=== PATIENT | male | born 1955 ===

== ENCOUNTER 2022-10-24 03:52 | Emergency (ER) | payer BC, OTHER ==
--- OUTSIDE RECORDS SUMMARY | 2022-10-24 04:01 | XMS REPORT | Continuity of Care Document ---
:1955 Author Organization [facility] t Address [address] [place] [address] Care Team Providers Name Role Phone Ravi Chisholm Primary Care Physician Doris PROMOTION MANAGERPinky Luis Attending Clinician Only, Ang Db Test Attending Clinician Unavailable Kristina Wisdom Attending Clinician KRISTINA COX Attending Clinician Unavailable Ricardo Castillo Attending Clinician Unavailable Only, Adc Test Attending Clinician Unavailable Isaak Bray MD Attending Clinician Ella Shelley MD Attending Clinician ELLA SHELLEY Attending Clinician Unavailable Capri Paulino RN Attending Clinician Unavailable Uche Frey MD Attending Clinician UCHE FREY Attending Clinician Unavailable Doctor Unassigned, [place] Attending Clinician Unavailable Isaak Candelaria Attending Clinician Ricardo Castillo Attending Clinician Woodrow Ward Attending Clinician Kev Guzman Attending Clinician Ricardo Castillo Admitting Clinician Unavailable Amrit Perez Admitting Clinician Ricardo Castillo Admitting Clinician Payers Payer Name Policy Type Policy Number Effective Date Expiration Date Brent soto MEDICARE PART A [id number] 2021 \\T\\ B 00:00:00 [employer] CHOICE POS [id number] 2017 II 00:00:00 Problems Condition Condition Condition Status Onset Resolution Last Treating Co mments Source Name Details Category Date Date Treatment Clinician Date Heart Heart Disease Active [facility] attack attack 07-19 ity of 00:00: [address] CHEST PAIN CHEST Diagnosis Active 2019-05-18 Memoria PAIN 05-18 13:50:00 l Active 00:00: [place] 05/18/2019 00 [facility] [place] ACUTE ACUTE Diagnosis Active 2019-05-21 Mem oria CHEST PAIN CHEST PAIN 05-18 08:31:00 l Active 00:00: [place] 05/18/2019 00 [facility] PERSISTENT PERSISTEN Diagnosis Active 2017-06-28 Memoria CHEST PAIN T CHEST 06-24 08:35:00 l PAIN 00:00: P[place] Active 00 06/24/2017 [facility] F/U F/U Diagnosis Active 2017-06-22 Mem oria Active 06-15 08:29:00 l 06/15/2017 00:00: Mic carr [address] CAD CAD Diagnosis Active 2016-11-10 Mem oria Active 06-18 15:24:00 l 06/18/2016 00:00: Mic carr [address] CCL/LHC, CCL/LHC, Diagnosis Active 2016-06-18 Memoria SCA W/ SCA W/ 06-18 16:37:00 l POSS POSS 00:00: [place] PCI/DX: PCI/DX: 00 CAD CAD Active 06/18/2016 [facility] FOLLOW UP FOLLOW UP Diagnosis Active 2016-06-18 Memoria Active 06-17 14:08:00 l 06/17/2016 00:00: Mic carr [address] T79.A12D - [id number].[id number] Diagnosis Active 2016-05-24 Memoria TRAUMATIC - 05-13 15:39:00 l COMPARTMEN TRAUMATIC 00:01: Her angel T SYNDROM COMPARTMEN 00 T SYNDROM Active 05/13/2016 CHARITY Dumas NUMBNESS NUMBNESS Diagnosis Active 2013-112014-09-17 Memoria TO TO 0-28 14:29:00 l SHOULDER SHOULDER 00:00: Mic carr Active 00 09/10/2014 [facility] CORONARY CORONARY Diagnosis Active 2014-05-06 Memoria ARTERY ARTERY 05-02 07:55:00 l DISEASE DISEASE 00:00: Piter Active 00 05/02/2014 [facility] 3 MT F/U 3 MT F/U Diagnosis Active 2014-05-01 Memoria Active 01-21 16:26:00 l 01/21/2014 00:00: Mic carr [address] 6 MONTHS 6 MONTHS Diagnosis Active 2012-112014-02-18 Memoria FOLLOW-UP FOLLOW-UP 0- 15:27:00 l Active 00:00: [place] 09/06/2013 00 [facility] CHEST CHEST Diagnosis Active 2013-04-25 Me moria PAINOK PAINOK 04-24 08:09:00 l TO ADD PER TO ADD PER 00:00: Rishi RAMIREZ 00 [id number] Active 04/24/2013 [facility] Hypertensi Problem Resolve 2019-05-21 Memoria ve Hypertensi d 21:56:22 l disorder, ve Piter systemic disorder, arterial systemic (disorder) arterial (disorder) Resolved Problem 05/21/2019 [facility] CHARITY Dumas,[facility] Coronary Coronary Problem Active 2019-05-21 Memoria arterioscl arterioscl 21:56:22 l erosis erosis Piter (disorder) (disorder) Active Problem 05/21/2019 [facility], CHARITY Dumas,[facility] Hyperlipid Hyperlipi Problem Active 2019-05-21 Memoria emia demia 21:56:22 l (disorder) (disorder) Rishi santos Active Problem 05/21/2019 [facility] CHARITY Dumas,[facility] History of History Problem Active 2019-05-21 Memoria placement of 21:56:22 l of stent placement Gilda nn for of stent coronary for artery coronary disease artery (situation disease ) (situation ) Active Problem 05/21/2019 [facility] CHEST CHEST Diagnosis Active 2019-05-21 Mem oria PAIN, PAIN, 08:31:00 l UNSPECIFIE UNSPECIFIE He tom D D Active [facility] SKIN SKIN Diagnosis Active 2014-09-17 Mem oria SENSATION SENSATION 14:29:00 l DISTURB DISTURB Piter Active [facility] COR ATH COR ATH Diagnosis Active 2014-05-06 Memoria UNSP VSL UNSP VSL 07:55:00 l NTV/GRF NTV/GRF Piter Active [facility] Allergies, Adverse Reactions, Alerts Allergy Allergy Status Severity Reaction(s) Onset Inactive Treating Comm ents Source Name Type Date Date Clinician NO KNOWN Drug Active [facility] ALLERGIE Class ity of S [facility] Social History Social Habit Start Date Stop Date Quantity Comments Source Exposure to Yes [facility] SARS-CoV-2 (event) Medica l Branch Social History 2019-05-19 2019-05-19 [facility] [place] adriane 03:04:25 03:04:25 [birth year] [facility] 00:00:00 00:00:00 [facility] Smoking Status Start Date Stop Date Source Unknown if ever smoked [facility] Social [facility] Medications Ordered Filled Start Stop Current Ordering Indication Dosage Frequency Signature Comments Components Source Medication Medication Date Date Medication? Clinician (SIG) Name Name clopidogreL Yes 75mg Take 75 mg Univers 75 mg 906 by mouth ity of tablet 00:30: daily. [address] aspirin 2020- Yes Take by Univers (ASPIR-81 9-06 mouth. ity of ORAL) 00:30: [address] clopidogreL Yes 75mg Take 75 mg Univers 75 mg 906 by mouth ity of tablet 00:30: daily. [address] aspirin 2020- Yes Take by Univers (ASPIR-81 9-06 mouth. ity of ORAL) 00:30: [address] metoprolol 2020- Yes Univers succinate 05 ity of XL 25 mg 24 00:00: [place] hr tablet 00 Medical [place] simvastatin Yes Univer s 80 mg 9-05 ity of tablet 00:00: [facility] Branch tamsulosin Yes Univers 0.4 mg 24 -05 ity of hr capsule 00:00: [facility] azithromyci Yes [id number] 250mg Take 1 Univers n 250 mg 9-05 tablet by ity of tablet 00:00: mouth daily. Medical Take 500 Branch mg day 1, then 250 mg days 2 to 5. metoprolol Yes Univers succinate 9-05 ity of XL 25 mg 24 00:00: [place] hr tablet 00 [facility] simvastatin Yes Univer s 80 mg 9-05 ity of tablet 00:00: [place] [facility] tamsulosin Yes Univers 0.4 mg 24 -05 ity of hr capsule 00:00: [place] [facility] azithromyci Yes [id number] 250mg Take 1 Univers n 250 mg 9-05 tablet by ity of tablet 00:00: mouth daily. Medical Take 500 Branch mg day 1, then 250 mg days 2 to 5. metoprolol 0 No 25 mg, 1 Mem oria extended 05-19 tab, l release 14:00: Route: PO, Herm nikos 00 Drug form: ERTAB, Daily, Start date: 05/19/19 9:00:00 CDT, Duration: 30 day, Stop date: 06/17/19 9:00:00 CDT, 0 Lisinopril 2018-0 No Notes: Memor ia 05-19 (Same as: l 14:00: Prinivil, Piter 00 Zestril) Plavix 2018-0 No Notes: Memoria 05-19 (Same As: l 14:00: Plavix) Aspirin 81 2018-0 No 162 mg, 2 Me moria MG Enteric 05-19 tab, l Coated 14:00: Route: PO, Gilda nn Tablet 00 Drug form: ECTAB, Daily, Dosing Weight 95.455, kg, Start date: 05/19/19 9:00:00 CDT, Duration: 30 day, Stop date: 06/17/19 9:00:00 CDT, 0 metoprolol 2019-0 No 25 mg, 1 Mem oria extended -06 tab, l release 14:00: Route: PO, Herm nikos 00 Drug form: ERTAB, Daily, Start date: 05/19/19 9:00:00 CDT, Duration: 30 day, Stop date: 06/17/19 9:00:00 CDT, 0 Lisinopril No Notes: Memor ia 05-19 (Same as: l 14:00: Prinivil, [place] Zestril) Plavix No Notes: Memoria - (Same As: l 14:00: Plavix) Piter 00 Aspirin 81 No 162 mg, 2 Me moria MG Enteric 05-19 tab, l Coated 14:00: Route: PO, Gilda nn Tablet 00 Drug form: ECTAB, Daily, Dosing Weight 95.455, kg, Start date: 05/19/19 9:00:00 CDT, Duration: 30 day, Stop date: 06/17/19 9:00:00 CDT, 0 Potassium No Notes: Memori a Chloride 05-19 (Same as: l 09:21: K-Dur 20) "Do Not Crush" Give with food and full glass of water For patients unable to swallow tablet, dissolve in one half glass of water. Allow about 2 minutes for the tablets to disintegra te. Stir before giving to prepare slurry and administer . Please exclude Patient s with feeding tube less than 14 [place] (Dobhoff, J-tube etc) and pediatric and patients. Potassium No Notes: Memori a Chloride 05-19 (Same as: l 09:21: K-Dur 20) Piter 00 "Do Not Crush" Give with food and full glass of water For patients unable to swallow tablet, dissolve in one half glass of water. Allow about 2 minutes for the tablets to disintegra te. Stir before giving to prepare slurry and administer . Please exclude Patient s with feeding tube less than 14 [place] (Dobhoff, J-tube etc) and pediatric and patients. Saline No 10 ml, Memoria Flush 0.9% 05-19 Route: l 02:00: IVP, Drug Form: INJ, Dosing Weight 95.455, kg, Q12H, Start date: 05/18/19 21:00:00 CDT, Duration: 30 day, Stop date: 06/17/19 9:00:00 CDT, 0 Simvastatin 2018-0 No Notes: [place] ed 7-06 (Same as: l 02:00: Zocor) Saline No 10 ml, Memoria Flush 0.9% 05-19 Route: l 02:00: IVP, Drug Form: INJ, Dosing Weight 95.455, kg, Q12H, Start date: 05/18/19 21:00:00 CDT, Duration: 30 day, Stop date: 06/17/19 9:00:00 CDT, 0 Simvastatin 0 No Notes: [place] ed 7-06 (Same as: l 02:00: Zocor) Enoxaparin No Notes: Memor ia 7-05 (Same as: l 21:00: Lovenox) Enoxaparin No Notes: Memor ia 7-05 (Same as: l 21:00: Lovenox) Saline No 10 ml, Memoria Flush 0.9% 05-18 Route: l 20:13: IVP, Drug Form: INJ, Dosing Weight 95.455, kg, PRN, PRN Line Flush, Start date: 05/18/19 15:13:00 CDT, Duration: 30 day, Stop date: 06/17/19 15:12:00 CDT, 0 Adenosine No 80.1822 Memor ia 7-05 mg, Route: l 20:13: IVP, ONCE, Dosing Weight 95.455, kg, Priority: Routine, Start date: 05/18/19 15:13:00 CDT, Stop date: 05/18/19 15:13:00 CDT Nitroglycer No 0.4 mg, 1 M emoria in 05-18 tab, l 20:13: Route: SL, Drug form: TAB, Q5Min, Dosing Weight 95.455, kg, PRN Chest Pain, Start date: 05/18/19 15:13:00 CDT, Duration: 3 doses or times, Stop date: Limited # of times, 0 Saline No 10 ml, Memoria Flush 0.9% 05-18 Route: l 20:13: IVP, Drug Form: INJ, Dosing Weight 95.455, kg, PRN, PRN Line Flush, Start date: 05/18/19 15:13:00 CDT, Duration: 30 day, Stop date: 06/17/19 15:12:00 CDT, 0 Adenosine 2019-0 No 80.1822 Memor ia 7-05 mg, Route: l 20:13: IVP, ONCE, Dosing Weight 95.455, kg, Priority: Routine, Start date: 05/18/19 15:13:00 CDT, Stop date: 05/18/19 15:13:00 CDT Nitroglycer No 0.4 mg, 1 M emoria in 05 tab, l 20:13: Route: SL, Drug form: TAB, Q5Min, Dosing Weight 95.455, kg, PRN Chest Pain, Start date: 05/18/19 15:13:00 CDT, Duration: 3 doses or times, Stop date: Limited # of times, 0 Nitroglycer Yes 0.4 mg = 1 Memoria in 0.4 MG 8-05 tab, SL, l Sublingual 21:02: Q5Min, PRN H ermann Tablet 45 Chest [Nitrostat] Pain, # 25 tab, 6 Refill(s), Pharmacy: [facility] Nitroglycer Yes 0.4 mg = 1 Memoria in 0.4 MG 8-05 tab, SL, l Sublingual 21:02: Q5Min, PRN H ermann Tablet 45 Chest [Nitrostat] Pain, # 25 tab, 6 Refill(s), Pharmacy: [facility] 24 HR Yes 30 mg = 1 Memoria Isosorbide 8-05 tab, PO, l Mononitrate 21:02: QAM, # 30 H ermann 30 MG 00 tab, 0 Extended Refill(s), Release Pharmacy: [facility] 24 HR Yes 30 mg = 1 Memoria Isosorbide 8-05 tab, PO, l Mononitrate 21:02: QAM, # 30 H ermann 30 MG 00 tab, 0 Extended Refill(s), Release Pharmacy: [facility] [id number] clopidogrel 2016-0 Yes 75 mg = 1 M emoria 75 MG Oral 5-17 tab, PO, l Tablet 16:37: Daily, # [place] [Plavix] 54 90 tab, 3 Refill(s), Pharmacy: [facility] ([facility] Order) Electronic clopidogrel 2016-0 Yes 75 mg = 1 M emoria 75 MG Oral 5-17 tab, PO, l Tablet 16:37: Daily, # [place] [Plavix] 54 90 tab, 3 Refill(s), Pharmacy: [facility] ([facility] Order) Electronic lisinopril 2016-0 Yes 5 mg = 1 Mem oria 5 mg oral 5-17 tab, PO, l tablet 16:37: Daily, # [place] 46 90 tab, 3 Refill(s), Pharmacy: [facility] ([facility] Order) Electronic lisinopril 2016-0 Yes 5 mg = 1 Mem oria 5 mg oral 5-17 tab, PO, l tablet 16:37: Daily, # [place] 46 90 tab, 3 Refill(s), Pharmacy: [facility] ([facility] Order) Electronic metoprolol 2016-0 Yes 25 mg, PO, M emoria 25 mg oral 5-17 Daily, # l tablet, 16:37: 90 tab, 3 Gilda nn extended 34 Refill(s), release Pharmacy: [facility] (Mail Order) Electronic metoprolol 2016-0 Yes 25 mg, PO, M emoria 25 mg oral 5-17 Daily, # l tablet, 16:37: 90 tab, 3 Gilda nn extended 34 Refill(s), release Pharmacy: [facility] (Mail Order) Electronic simvastatin 2016-0 Yes 80 mg = 1 M emoria 80 mg oral 5-17 tab, PO, l tablet 16:37: Bedtime, # Gilda nn 25 90 tab, 3 Refill(s), Pharmacy: [facility] (Mail Order) Electronic simvastatin 2016-0 Yes 80 mg = 1 M emoria 80 mg oral 5-17 tab, PO, l tablet 16:37: Bedtime, # Gilda nn 25 90 tab, 3 Refill(s), Pharmacy: [facility] (Mail Order) Electronic Nitroglycer 2016-0 Yes 0.4 mg = 1 Memoria in 0.4 MG 5-17 tab, SL, l Sublingual 16:37: Q5Min, PRN H ermann Tablet 12 Chest [Nitrostat] Pain, # 25 tab, 6 Refill(s), Pharmacy: [facility] Nitroglycer Yes 0.4 mg = 1 Memoria in 0.4 MG 5-17 tab, SL, l Sublingual 16:37: Q5Min, PRN H ermann Tablet 12 Chest [Nitrostat] Pain, # 25 tab, 6 Refill(s), Pharmacy: [facility] Zyrtec 2014-11 Yes PO, Daily, Memor ia 0-06 0 l 19:53: Refill(s) [place] Zyrtec 2014-11 Yes PO, Daily, Memor ia 0-06 0 l 19:53: Refill(s) [place] 00 Nitroglycer 2014-11 Yes 0.4 mg = 1 Memoria in 0.4 MG 0-06 tab, SL, l Sublingual 19:52: Q5Min, PRN H ermann Tablet 58 Chest [Nitrostat] Pain, # 25 tab, 3 Refill(s), Pharmacy: [facility] (Mail Order) Electronic Nitroglycer 2014-11 Yes 0.4 mg = 1 Memoria in 0.4 MG 0-06 tab, SL, l Sublingual 19:52: Q5Min, PRN H ermann Tablet 58 Chest [Nitrostat] Pain, # 25 tab, 3 Refill(s), Pharmacy: [facility] ([facility] Order) Electronic clopidogrel 2014-11 Yes 75 mg = 1 M emoria 75 MG Oral 0-06 tab, PO, l Tablet 19:52: Daily, # [place] [Plavix] 00 90 tab, 3 Refill(s), Pharmacy: [facility] ([facility] Order) Electronic simvastatin 2014-11 Yes 80 mg = 1 M emoria 80 mg oral 0-06 tab, PO, l tablet 19:52: Bedtime, # Gilda nn 00 90 tab, 3 Refill(s), Pharmacy: [facility]) Electronic metoprolol 2014-11 Yes 25 mg, PO, M emoria 25 mg oral 0-06 Daily, # l tablet, 19:52: 90 tab, 3 Gilda nn extended 00 Refill(s), release Pharmacy: [facility]) Electronic lisinopril 2014-11 Yes 5 mg = 1 Mem oria 5 mg oral 0-06 tab, PO, l tablet 19:52: Daily, # [place] 00 90 tab, 3 Refill(s), Pharmacy: [facility] ([facility] Order) Electronic clopidogrel 2014-11 Yes 75 mg = 1 M emoria 75 MG Oral 0-06 tab, PO, l Tablet 19:52: Daily, # [place] [Plavix] 00 90 tab, 3 Refill(s), Pharmacy: [facility]) Electronic simvastatin 2014-11 Yes 80 mg = 1 M emoria 80 mg oral 0-06 tab, PO, l tablet 19:52: Bedtime, # Gilda nn 00 90 tab, 3 Refill(s), Pharmacy: [facility] ([facility]) Electronic metoprolol 2014-11 Yes 25 mg, PO, M emoria 25 mg oral 0-06 Daily, # l tablet, 19:52: 90 tab, 3 Gilda nn extended 00 Refill(s), release Pharmacy: [facility] ([facility] Order) Electronic lisinopril 2014-11 Yes 5 mg = 1 Mem oria 5 mg oral 0-06 tab, PO, l tablet 19:52: Daily, # Piter 00 90 tab, 3 Refill(s), Pharmacy: [facility] ([facility] Order) Electronic simvastatin Yes 80 mg = 1 M emoria 80 mg oral 9-24 tab, PO, l tablet 13:48: Bedtime, # Gilda nn 00 90 tab, 1 Refill(s), Pharmacy: [facility] (Mail Order) Electronic simvastatin Yes 80 mg = 1 M emoria 80 mg oral 9-24 tab, PO, l tablet 13:48: Bedtime, # Gilda nn 00 90 tab, 1 Refill(s), Pharmacy: [facility] ([facility]) Electronic metoprolol Yes 25 mg = 1 Me moria 25 mg oral 9-23 tab, PO, l tablet, 13:44: Daily, # Mic n extended 14 90 tab, 1 release Refill(s), Pharmacy: [facility] ([facility]) Electronic metoprolol Yes 25 mg = 1 Me moria 25 mg oral 9-23 tab, PO, l tablet, 13:44: Daily, # Mic n extended 14 90 tab, 1 release Refill(s), Pharmacy: [facility] ([facility]) Electronic Nitroglycer Yes 0.4 mg = 1 Memoria in 0.4 MG 9-23 tab, SL, l Sublingual 13:44: Q5Min, PRN H ermann Tablet 00 Chest [Nitrostat] Pain, # 25 tab, 0 Refill(s), Pharmacy: [facility] ([facility]) Electronic Nitroglycer Yes 0.4 mg = 1 Memoria in 0.4 MG 9-23 tab, SL, l Sublingual 13:44: Q5Min, PRN H ermann Tablet 00 Chest [Nitrostat] Pain, # 25 tab, 0 Refill(s), Pharmacy: [facility]) Electronic lisinopril Yes 5 mg = 1 Mem oria 5 mg oral 9-23 tab, PO, l tablet 13:43: Daily, # Piter 54 90 tab, 1 Refill(s), Pharmacy: [facility]) Electronic lisinopril Yes 5 mg = 1 Mem oria 5 mg oral 9-23 tab, PO, l tablet 13:43: Daily, # [place] 54 90 tab, 1 Refill(s), Pharmacy: [facility] ([facility]) Electronic clopidogrel Yes 75 mg = 1 M emoria 75 MG Oral 9-23 tab, PO, l Tablet 13:43: Daily, # [place] [Plavix] 31 90 tab, 1 Refill(s), Pharmacy: [facility] ([facility]) Electronic clopidogrel Yes 75 mg = 1 M emoria 75 MG Oral 9-23 tab, PO, l Tablet 13:43: Daily, # [place] [Plavix] 31 90 tab, 1 Refill(s), Pharmacy: [facility] ([facility] Order) Electronic lisinopril Yes Special [place] ed 5 mg oral 6-26 Instructio l tablet 13:48: ns: Piter 00 patient is due for follow up appt metoprolol Yes Special [place] ed 25 mg oral 6-26 Instructio l tablet, 13:48: ns: [place] extended 00 patient is release due for follow up appt simvastatin Yes Special Mem oria 80 mg oral 6-26 Instructio l tablet 13:48: ns: [place] 00 patient is due for follow up appt clopidogrel Yes Special Mem oria 75 MG Oral 6-26 Instructio l Tablet 13:48: ns: [place] [Plavix] 00 patient is due for follow up appt lisinopril Yes Special [place] ed 5 mg oral 6-26 Instructio l tablet 13:48: ns: [place] 00 patient is due for follow up appt metoprolol Yes Special [place] ed 25 mg oral 6-26 Instructio l tablet, 13:48: ns: [place]iter extended 00 patient is release due for follow up appt simvastatin Yes Special Mem oria 80 mg oral 6-26 Instructio l tablet 13:48: ns: [place] 00 patient is due for follow up appt clopidogrel Yes Special Mem oria 75 MG Oral 6-26 Instructio l Tablet 13:48: ns: [place] [Plavix] 00 patient is due for follow up appt Simvastatin 2013-11 No Notes: [place] ed 0-30 (Same as: l 02:00: Zocor) [place] 00 Simvastatin 2013-11 No Notes: [place] ed 0-30 (Same as: l 02:00: Zocor) Piter Influenza 2013-11 No Notes: Memori a Virus 0-29 (Same as: l Vaccine, 14:00: Fluzone Mic n Inactivated 00 [place] A-[place]- nt) (H3N2)-like virus ([place] [facility] X-175C) strain / Influenza Virus Vaccine, Inactivated A-[place]- 59-2006, IVR-148 (H1N1) strain / Influenza Virus Vaccine, Inactivated , B-[place]-4 -2006-lik 24 HR 2013-11 No Notes: Memoria Metoprolol 0-29 (Same as: l Tartrate 25 14:00: Toprol XL) [place] MG Extended 00 Do Not Release Crush Tablet [Toprol] Lisinopril 2013-11 No Notes: Memor ia 0-29 (Same as: l 14:00: Prinivil, Piter Zestril) Plavix 2013-11 No Notes: Memoria 0-29 (Same As: l 14:00: Plavix) Piter 00 Aspirin 81 2013-11 No Notes: Do Me moria MG Enteric 0-29 not crush l Coated 14:00: or chew. [place] Tablet 00 (Same As: Ecotrin) Influenza 2013-11 No Notes: Memori a Virus 0-29 (Same as: l Vaccine, 14:00: Fluzone Mic n Inactivated 00 [place] A-[place]- nt) (H3N2)-like virus (A-[place] [facility] X-175C) strain / Influenza Virus Vaccine, Inactivated A-[place]- , IVR-148 (H1N1) strain / Influenza Virus Vaccine, Inactivated , B-[place]--lik 24 HR 2013-11 No Notes: Memoria Metoprolol 0-29 (Same as: l Tartrate 25 14:00: Toprol XL) Piter MG Extended 00 Do Not Release Crush Tablet [Toprol] Lisinopril 2013-11 No Notes: Memor ia 0-29 (Same as: l 14:00: Prinivil, Piter 00 Zestril) Plavix 2013-11 No Notes: Memoria 0-29 (Same As: l 14:00: Plavix) P[place] 00 Aspirin 81 2013-11 No Notes: Do Me moria MG Enteric 0-29 not crush l Coated 14:00: or chew. [place] Tablet 00 (Same As: Ecotrin) heparin 2013-11 No Notes: Memoria sodium, 0-29 porcine l porcine 13:00: heparin Piter 2500 UNT/ML 00 Injectable Solution heparin 2013-11 No Notes: Memoria sodium, 0-29 porcine l porcine 13:00: heparin Piter 2500 UNT/ML 00 Injectable Solution Nitroglycer 2013-11 No Notes: [place] ed in 0.4 MG 0-29 (Same l Sublingual 06:07: as:Nitroqu H ermann Tablet 00 ick, [Nitrostat] Nitrostat) "Do Not Crush" Sublingual tablet Nitroglycer 2013-11 No Notes: [place] ed in 0.4 MG 0-29 (Same l Sublingual 06:07: as:Nitroqu H ermann Tablet 00 ick, [Nitrostat] Nitrostat) "Do Not Crush" Sublingual tablet Iohexol 2013-11 No Special Memoria 0-28 Instructio l 20:02: ns: Dose = [place] 00 2.2ml/kg, Max dose = 100ml -- "To be infused by Radiology Staff ONLY" Iohexol 2013-11 No Special Memoria 0-28 Instructio l 20:02: ns: Dose = [place] 00 2.2ml/kg, Max dose = 100ml -- "To be infused by Radiology Staff ONLY" Saline 2013-11 No Notes: Memoria Flush 0.9% 0-28 (Same as: l 18:36: BD Piter 00 Posiflush) Saline 2013-11 No Notes: Memoria Flush 0.9% 0-28 (Same as: l 18:36: BD Piter 00 Posiflush) Nitroglycer Yes 0.4 mg = 1 Memoria in 0.4 MG 4-23 tab, SL, l Sublingual 21:33: Q5Min, Gilda nn Tablet 00 Chest [Nitrostat] Pain, # 100 tab, 1 Refill(s), Pharmacy: [facility] (Mail Order) Electronic lisinopril Yes 5 mg = 1 Mem oria 5 mg oral 4-23 tab, PO, l tablet 21:33: Daily, # [place] 00 90 tab, 3 Refill(s), Pharmacy: [facility] (Mail Order) Electronic clopidogrel Yes 75 mg = 1 M emoria 75 MG Oral 4-23 tab, PO, l Tablet 21:33: Daily, # [place] [Plavix] 00 90 tab, 3 Refill(s), Pharmacy: [facility] (Mail Order) Electronic simvastatin Yes 80 mg = 1 M emoria 80 mg oral 4-23 tab, PO, l tablet 21:33: Bedtime, # Gilda nn 00 90 tab, 3 Refill(s), Pharmacy: [facility] (Mail Order) Electronic metoprolol Yes 25 mg = 1 Me moria 25 mg oral 4-23 tab, PO, l tablet, 21:33: Daily, # Mic n extended 00 90 tab, 3 release Refill(s), Pharmacy: [facility] (Mail Order) Electronic Nitroglycer Yes 0.4 mg = 1 Memoria in 0.4 MG 4-23 tab, SL, l Sublingual 21:33: Q5Min, Gilda nn Tablet 00 Chest [Nitrostat] Pain, # 100 tab, 1 Refill(s), Pharmacy: [facility] (Mail Order) Electronic lisinopril Yes 5 mg = 1 Mem oria 5 mg oral 4-23 tab, PO, l tablet 21:33: Daily, # [place] 00 90 tab, 3 Refill(s), Pharmacy: [facility] (Mail Order) Electronic clopidogrel Yes 75 mg = 1 M emoria 75 MG Oral 4-23 tab, PO, l Tablet 21:33: Daily, # [place] [Plavix] 00 90 tab, 3 Refill(s), Pharmacy: [facility] (Mail Order) Electronic simvastatin Yes 80 mg = 1 M emoria 80 mg oral 4-23 tab, PO, l tablet 21:33: Bedtime, # Gilda nn 00 90 tab, 3 Refill(s), Pharmacy: [facility] (Mail Order) Electronic metoprolol Yes 25 mg = 1 Me moria 25 mg oral 4-23 tab, PO, l tablet, 21:33: Daily, # Mic n extended 00 90 tab, 3 release Refill(s), Pharmacy: [facility] (Mail Order) Electronic lisinopril Yes 5 mg = 1 Mem oria 5 mg oral 3-10 tab, PO, l tablet 18:43: Daily, # [place] 00 30 tab, 1 Refill(s), Pharmacy: [facility] lisinopril Yes 5 mg = 1 Mem oria 5 mg oral 3-10 tab, PO, l tablet 18:43: Daily, # [place] 00 30 tab, 1 Refill(s), Pharmacy: [facility] [id number] Nitroglycer Yes 0.4 mg = 1 Memoria in 0.4 MG 3-10 tab, SL, l Sublingual 18:25: Q5Min, Gilda nn Tablet 00 Chest [Nitrostat] Pain, # 30 tab, 1 Refill(s), Pharmacy: [facility] Nitroglycer Yes 0.4 mg = 1 Memoria in 0.4 MG 3-10 tab, SL, l Sublingual 18:25: Q5Min, Gilda nn Tablet 00 Chest [Nitrostat] Pain, # 30 tab, 1 Refill(s), Pharmacy: [email or web address] Nitroglycer No 0.4 mg = 1 Memoria in 0.4 MG 3-10 tab, SL, l Sublingual 18:18: Q5Min, Gilda nn Tablet 00 Chest [Nitrostat] Pain, # 100 tab, 0 Refill(s) Aspirin 81 Yes 81 mg = 1 Me moria MG Enteric 3-10 tab, PO, l Coated 18:18: Daily, # 0 Gilda nn Tablet 00 tab, 0 Refill(s) metoprolol Yes 25 mg, PO, M emoria 25 mg oral 3-10 Daily, # l tablet, 18:18: 30 tab, 0 Gilda nn extended 00 Refill(s) release Aspirin 81 Yes 81 mg = 1 Me moria MG Enteric 3-10 tab, PO, l Coated 18:18: Daily, # 0 Gilda nn Tablet 00 tab, 0 Refill(s) metoprolol Yes 25 mg, PO, M emoria 25 mg oral 3-10 Daily, # l tablet, 18:18: 30 tab, 0 Gilda nn extended 00 Refill(s) release Nitroglycer No 0.4 mg = 1 Memoria in 0.4 MG 3-10 tab, SL, l Sublingual 18:18: Q5Min, Gilda nn Tablet 00 Chest [Nitrostat] Pain, # 100 tab, 0 Refill(s) metoprolol 2012-11 Yes Ricardo 25 mg = 1 Memoria 25 mg oral 2-04 [place] tab, PO, l tablet, 18:07: Daily, # Mic n extended 00 30 tab, 3 release Refill(s), Pharmacy: [facility] metoprolol 2012-11 Yes Ricardo 25 mg = 1 Memoria 25 mg oral 2-04 [place] tab, PO, l tablet, 18:07: Daily, # Mic n extended 00 30 tab, 3 release Refill(s), Pharm[facility]: [email or web address] pneumococca No SYSTEM 0.5 ml, M emoria l 23-valent 4-18 SYSTEM Route: IM, l vaccine 14:00: Drug Form: Herm nikos 00 INJ, Start date: 03/01/12 9:00:00, Stop date: 03/01/12 9:00:00 pneumococca 2012-0 No SYSTEM 0.5 ml, M emoria l 23-valent 4-18 SYSTEM Route: IM, l vaccine 14:00: Drug Form: Herm nikos 00 INJ, Start date: 03/01/12 9:00:00, Stop date: 03/01/12 9:00:00 Immunizations Ordered Filled Immunization Date Status Comments [facility] Immunization Name Name SARS-COV-2 COVID-19 2021-01-31 Completed Unive rsity of PFIZER VACCINE 00:00:00 [facility] SARS-COV-2 COVID-19 2021-01-31 Completed Unive rsity of PFIZER VACCINE 00:00:00 [facility] SARS-COV-2 COVID-19 2021-01-31 Completed Unive rsity of PFIZER VACCINE 00:00:00 [facility] SARS-COV-2 COVID-19 2021-01-10 Completed Unive rsity of PFIZER VACCINE 00:00:00 [facility] SARS-COV-2 COVID-19 2021-01-10 Completed Unive rsity of PFIZER VACCINE 00:00:00 [facility] SARS-COV-2 COVID-19 2021-01-10 Completed Unive rsity of PFIZER VACCINE 00:00:00 [facility] influenza virus 2014-09-11 Completed [facility] [place] vaccine, 21:51:00 inactivated influenza virus 2014-09-11 Completed [facility] [place] vaccine, 21:51:00 inactivated pneumococcal 2012-03-01 Completed [facility] angel 23-valent vaccine 20:00:00 pneumococcal 2012-03-01 Completed [facility] angel 23-valent vaccine 20:00:00 pneumococcal 2012-03-01 Completed [facility] angel 23-valent vaccine 20:00:00 pneumococcal 2012-03-01 Completed [facility] Her angel 23-valent vaccine 20:00:00 Vital Signs Vital Name Observation Time Observation Value Comments Source Systolic blood 2021-07-20 00:27:00 114 mm[Hg] Univer sity of pressure [facility] Diastolic blood 2021-07-20 00:27:00 78 mm[Hg] Unive rsity of pressure [facility] Heart rate 2021-07-20 00:27:00 83 /min [facility] Body temperature 2021-07-20 00:27:[address] [facility] Respiratory rate 2021-07-20 00:27:00 16 /min [facility] Body height 2021-07-20 00:27:00 177.8 cm [facility] Body weight 2021-07-20 00:27:00 92.987 kg [facility] BMI 2021-07-20 00:27:00 29.41 kg/m2 [facility] Oxygen saturation in 2021-07-20 00:27:00 94 /min [facility] Arterial blood by [facility] Pulse oximetry Branch Temperature Oral (F) 2019-05-19 22:00:00 97.2 F [facility] [place] Respitory Rate 2019-05-19 18:00:00 Memori al [facility] Systolic (mm Hg) 2019-05-19 18:00:00 [place] rial [place] Diastolic (mm Hg) 2019-05-19 18:00:00 Mem orial [place] Systolic (mm Hg) 2019-05-19 17:00:00 [place] [facility] [place] Diastolic (mm Hg) 2019-05-19 17:00:00 Mem orial [place] Temperature Oral (F) 2019-05-19 17:00:00 96.9 F [facility] Systolic (mm Hg) 2019-05-19 14:00:00 [place] [facility] [place] Diastolic (mm Hg) 2019-05-19 14:00:00 Mem o[facility] [place] Respitory Rate 2019-05-19 14:00:00 [facility] [place] Temperature Oral (F) 2019-05-19 13:32:00 96.4 F [facility] [place] Respitory Rate 2019-05-19 13:00:00 [facility] [place] BMI Calculated 2019-05-19 02:58:00 Memori al [place] Weight 2019-05-19 02:58:00 [facility] Height 2019-05-19 02:58:00 177.8 cm [facility] [place] BMI Calculated 2019-05-19 02:53:00 [facility] [place] Height 2019-05-19 02:53:00 177.8 cm [facility] Weight 2019-05-19 02:53:00 [facility] [place] BMI Calculated 2019-05-18 20:13:00 Mem[facility] al [facility] Weight 2019-05-18 14:30:00 [facility] Height 2019-05-18 14:30:00 177.8 cm [facility] Heart Rate 2019-05-18 14:30:00 [facility] BMI Calculated 2017-06-28 13:28:00 Memori al [facility] Weight 2017-06-28 13:28:00 [facility] [place] Height 2017-06-28 13:28:00 177.8 cm [facility] [place] BMI Calculated 2017-06-22 16:04:00 [facility] [place] Weight 2017-06-22 16:04:00 [facility] Height 2017-06-22 16:04:00 180.34 cm [facility] [place] Systolic (mm Hg) 2017-06-22 16:04:00 [place] Diastolic (mm Hg) 2017-06-22 16:04:00 Mem o[facility] [place] Respitory Rate 2017-06-22 16:04:00 [facility] [place] Heart Rate 2017-06-22 16:04:00 [facility] Temperature Oral (F) 2017-06-22 16:04:00 97.5 F [facility] Systolic (mm Hg) 2016-06-21 22:30:00 [place] Diastolic (mm Hg) 2016-06-21 22:30:00 Mem orial [place] Systolic (mm Hg) 2016-06-21 22:00:00 [place] [facility] [place] Diastolic (mm Hg) 2016-06-21 22:00:00 Mem o[facility] [place] Respitory Rate 2016-06-21 22:00:00 Memori al [facility] Respitory Rate 2016-06-21 21:30:00 [facility] [place] Systolic (mm Hg) 2016-06-21 21:30:00 [place] rial [place] Diastolic (mm Hg) 2016-06-21 21:30:00 Mem orial [facility] Respitory Rate 2016-06-21 21:15:00 [facility] [place] Temperature Oral (F) 2016-06-21 13:32:00 98.8 F [facility] [place] BMI Calculated 2016-06-21 13:19:00 [facility] [place] Weight 2016-06-21 13:19:00 [facility] Height 2016-06-21 13:19:00 177.8 cm [facility] [place] Respitory Rate 2016-06-18 22:21:00 [facility] [place] Heart Rate 2016-06-18 22:21:00 [facility] Weight 2016-06-18 22:21:00 [facility] [place] BMI Calculated 2016-06-18 22:21:00 [facility] [place] Height 2016-06-18 22:21:00 177.8 cm [facility] Systolic (mm Hg) 2016-06-18 22:21:00 [place] rial [place] Diastolic (mm Hg) 2016-06-18 22:21:00 Mem orial [place] Temperature Oral (F) 2016-06-18 22:21:00 97.6 F [facility] [place] Temperature Oral (F) 2016-02-17 18:41:00 98.0 F [facility] [place] Respitory Rate 2016-02-17 18:41:00 [facility] [place] Heart Rate 2016-02-17 18:41:00 [facility] [place] Height 2016-02-17 18:41:00 177.8 cm [facility] [place] Systolic (mm Hg) 2016-02-17 18:41:00 [place] rial [place] Diastolic (mm Hg) 2016-02-17 18:41:00 Mem orial Piter BMI Calculated 2016-02-17 18:41:00 Memori al [facility] Weight 2016-02-17 18:41:00 [facility] Height 2015-08-19 19:50:00 177.8 cm [facility] [place] Systolic (mm Hg) 2015-08-19 19:50:00 [place] Diastolic (mm Hg) 2015-08-19 19:50:00 Mem orial [place] Respitory Rate 2015-08-19 19:50:00 Mem[facility] [place] Heart Rate 2015-08-19 19:50:00 [facility] BMI Calculated 2015-08-19 19:50:00 Memori al [facility] Weight 2015-08-19 19:50:00 [facility] [place] Systolic (mm Hg) 2014-09-12 23:24:00 [place] rial [place] Diastolic (mm Hg) 2014-09-12 23:24:00 Mem orial [place] Systolic (mm Hg) 2014-09-12 22:23:00 [place] Diastolic (mm Hg) 2014-09-12 22:23:00 Mem orial [facility]iter Heart Rate 2014-09-12 21:49:00 [facility] Systolic (mm Hg) 2014-09-12 21:49:00 [place] Diastolic (mm Hg) 2014-09-12 21:49:00 Mem orial [place] Heart Rate 2014-09-12 21:20:00 [facility] [place] Heart Rate 2014-09-12 21:00:00 [facility] Temperature Oral (F) 2014-09-12 10:39:00 97.0 F [facility] Temperature Oral (F) 2014-09-12 05:29:00 96.9 F [facility] Temperature Oral (F) 2014-09-12 01:23:00 97.3 F [facility] [place] Height 2014-09-11 02:00:00 177.8 cm [facility] Weight 2014-09-11 02:00:00 [facility] [place] BMI Calculated 2014-09-11 02:00:00 Memori al [place] Respitory Rate 2014-09-11 01:31:00 Mem[facility] [place] Respitory Rate 2014-09-10 23:38:00 Memori al [place] Respitory Rate 2014-09-10 21:35:00 Memori al [place] Weight 2014-09-10 17:42:00 [facility] [place] BMI Calculated 2014-09-10 17:42:00 Memori al [facility] Height 2014-09-10 17:42:00 177.8 cm [facility] [place] BMI Calculated 2014-05-06 12:49:00 Memori al [place] Height 2014-05-06 12:49:00 175.26 cm [facility] Weight 2014-05-06 12:49:00 [facility] Systolic (mm Hg) 2014-01-21 18:03:00 [place] rial [facility] Respitory Rate 2014-01-21 18:03:00 Memori al [facility] Heart Rate 2014-01-21 18:03:00 [facility] [place] Temperature Oral (F) 2014-01-21 18:03:00 97.4 F [facility] [place] Height 2014-01-21 18:03:00 177.8 cm [facility] Weight 2014-01-21 18:03:00 [facility] [place] BMI Calculated 2014-01-21 18:03:00 Memori al [facility] Height 2013-04-25 13:11:00 177.8 cm Dasha Dumas Weight 2013-04-25 13:11:00 Dasha Dumas Procedures Procedure Date / Time Performed Performing Clinician Matheus sheila ASSIGNMENT OF BENEFITS 2020-07-17 14:19:19 Doctor [facility]igned, [facility] to [facility] 2012-03-01 05:00:00 Dasha angel Encounters Start End Encounter Admission Attending Care Care Encounter Source Date/Time Date/Time Type Type Clinicians Facility Department ID 2021-12-15 Outpatient [facility] [id number] Memoria 02:43:32 r [facility] 07 l [facility] 2021-07-20 2021-07-20 [id number] Univers [facility]:00[facility]00 [facility]00[facility] [id number] ity of [place] 4.2.7.2.686 Anil as Beau?Blea [id number] [address] Office [facility] 2021-07-19 2021-07-19 Urgent [facility] 1.2.840.114 [id number] Univers 19:16:19 19:36:19 Care [facility] [id number] ity of [place] 4.2.7.2.686 Anil as Beau?Blea [id number] [address] Office [facility] 2021-07-19 2021-07-19 Outpatient R [facility] [id number] Univers 19:20:00 19:20:00 ity [facility] 2021-07-15 2021-07-15 Laboratory Only, Ang Db Test [facility] 1.2.8 40.114 [id number] Univers 19:16:02 19:31:02 Only Brooke [employer] 350.1.13.10 ity of [place] 4.2.7.2.686 Anil as Beau?Blea [id number] [address] Office [facility] 2021-07-15 2021-07-15 Outpatient R BROOKE [facility] [id number] Univers 19:30:00 19:30:00 KRISTINA ity [facility] 2021-03-26 2021-03-26 Outpatient R [facility] [id number] Univers 16:00:00 16:00:00 ity of [facility] 2021-01-31 2021-01-31 Outpatient [facility] [id number] Univers 10:50:00 10:50:00 ity of [facility] 2021-01-10 2021-01-10 Outpatient [facility] [id number] Univers 10:50:00 10:50:00 ity of [facility] 2020-10-02 2020-10-03 Inpatient Anna, [facility] NUC [id number] [facility] 10:30:00 22:52:30 Ricardo 81 [facility] 2020-08-08 2020-08-08 Laboratory Only, [facility] Test [facility] 1.2.840. 114 [id number] Univers 12:00:56 12:15:56 Only Isaak Bray [place] 350.1.13.10 ity of [place] 4.2.7.2.686 [facility] [id number] [address] 2020-08-08 2020-08-08 Laboratory Only, [facility] 1.2.840.114 [id number] 12:00:56 12:15:56 Only Test [place] 350.1.13.10 [place] 4.2.7.2.686 [place] [id number] [facility] 2020-08-08 2020-08-08 Outpatient R [facility] [id number] Univers 11:45:00 11:45:00 ity of [facility] 2020-08-05 2020-08-05 Laboratory Only, [facility] Test [facility] 1.2.840. 114 [id number] Univers 08:48:56 09:03:56 Only Isaak Brayton 350.1.13.10 ity of [place] 4.2.7.2.686 [facility] [id number] [address] 2020-08-05 2020-08-05 Laboratory Only, [facility] 1.2.840.114 7 [id number] 08:48:56 09:03:56 Only Test [place] 350.1.13.10 [place] 4.2.7.2.686 [place] [id number] 2020-08-05 2020-08-05 Outpatient R [facility] [id number] Univers 08:45:00 08:45:00 ity [facility] 2020-07-23 2020-07-23 Laboratory Only, [facility] Test [facility] 1.2.840. 114 [id number] Univers 09:21:36 09:36:36 Only Ella Shelley Steve 350.1.13.10 ity [facility] 4.2.7.2.686 [facility] [id number] [address] 2020-07-23 2020-07-23 Laboratory Only, [facility] 1.2.840.114 7 [id number] 09:21:36 09:36:36 Only Test [place] 350.1.13.[address] [place] [address] [id number] [facility] 2020-07-23 2020-07-23 Outpatient R ELLA SHELLEY [facility] [id number] Univers 09:30:00 09:30:00 ity [facility] 2020-07-18 2020-07-18 Letter JENY Paulino 1.2.840.114 [id number] Univers 00:00:00 00:00:00 (Out) Capri VALDIVIA 350.1.13.10 it y of [facility] 4.2.7.[address] [place] [id number] 2020-07-18 2020-07-18 Letter JENY Paulino 1.2.840.114 [id number] 00:00:00 00:00:00 (Out) Capri VALDIVIA 350.1.13.10 [facility] 42.7.2.68 [id number] [facility] 2020-07-17 2020-07-17 Laboratory Only, [facility] Test [facility] 1.2.840. 114 [id number] Univers 09:21:23 09:36:23 Only Uche Frey 350.1.13.10 ity [facility] 4.2.7.2.686 [facility] [id number] [address] 2020-07-17 2020-07-17 Laboratory Only, [facility] 1.2.840.114 [id number] 09:21:23 09:36:23 Only Test [place] 350.1.13.10 [place] 4.2.7.2.686 [place] [id number] 2020-07-17 2020-07-17 Outpatient R JAKE, [facility] [id number] Univers 09:15:00 09:15:00 UCHE ity of [facility] 2020-07-17 2020-07-17 Orders Doctor JENY 1.2.840.114 [id number] Univers 00:00:00 00:00:00 Only Unassigned, SKIP 350.1.13.10 ity of [place] [facility] 4.2.7.2.686 Anil as [phone] [facility] 009 [place] 2020-07-17 2020-07-17 Orders Doctor JENY 1.2.840.114 [id number] 00:00:00 00:00:00 Only Unassigned, SKIP 350.1.13.10 [place] [facility] 4.2.7.2.686 [id number] 2020-07-03 2020-07-03 Letter JENY Paulino 1.2.840.114 [id number] Univers 00:00:00 00:00:00 (Out) Capri T SKIP 350.1.13.10 it y of HOSPITAL 4.2.7.2.686 Anil as [phone] [facility] 019 [place] 2020-07-03 2020-07-03 Letter JENY Paulino 1.2.840.114 [id number] 00:00:00 00:00:00 (Out) Capri Keo CAIY 350.1.13.10 HOSPITAL 4.2.7.2.686 [id number] 2020-07-02 2020-07-02 Laboratory Only, [facility] Test [facility] 1.2.840. 114 [id number] Univers 13:38:20 13:53:20 Only Shelley, Ella [place] 350.1.13.10 ity of [place] 4.2.7.2.686 [place] [id number] [address] 2020-07-02 2020-07-02 Laboratory Only, [facility] 1.2.840.114 [id number] 13:38:20 13:53:20 Only Test [place] 350.1.13.10 [place] 4.2.7.2.686 [place] [id number] 2020-07-02 2020-07-02 Outpatient R ELLA SHELLEY [facility] [id number] [facility] 13:30:00 13:30:00 ity of [facility] 2019-05-18 2019-05-19 Observatio nullFlavo [facility] 4543 [id number] Memoria 14:27:26 22:45:00 n nadir [place] 26 [facility] 2019-05-18 2019-05-19 Observatio nullFlavo [facility] 4543 [id number] Memoria 14:27:26 22:45:00 n nadir Dumas 26 [facility] 2019-05-18 2019-05-19 Outpatient Bari [facility] [id number] 09:27:26 17:45:00 Isaak Maddie Clay 2019-05-18 2019-05-18 Outpatient E [facility] [id number] [facility] 13:39:00 13:39:00 2017-06-28 2017-06-29 Outpatient nullFlavo [facility] 4543 [id number] Memoria 13:28:00 04:59:00 r Piter [address] [place] [address] 2017-06-28 2017-06-29 Outpatient nullFlavo [facility] 4543 [id number] Memoria 13:28:00 04:59:[address] 2017-06-28 2017-06-28 Outpatient nAna [facility] [id number] 08:28:00 23:59:00 Ricardo 25 2017-06-22 2017-06-23 Outpatient nullFlavo [facility] 4543 [id number] Memoria 13:27:00 04:59:00 r [facility] 2017-06-22 2017-06-23 Outpatient nullFlavo [facility] 4543 [id number] Memoria 13:27:00 04:59:00 r [facility] 23 [facility] 2017-06-22 2017-06-22 Outpatient Anna [facility] [id number] 08:27:00 23:59:00 Ricardo 23 2017-06-21 2017-06-22 Outpatient nullFlavo [facility] 4543 [id number] Mem[facility] 15:28:00 04:59:00 r [place] 24 [facility] 2017-06-21 2017-06-22 Outpatient nullFlavo [facility] 4543 [id number] Memoria 15:28:00 04:59:00 r [place] 24 l [facility] 2017-06-21 2017-06-21 Outpatient Anna [facility] [id number] 10:28:00 23:59:00 Ricardo 24 2017-06-15 2017-06-17 Phone nullFlavo [facility] [id number] Memoria 15:17:00 04:59:59 Message r [place] 07 [facility] 2017-06-15 2017-06-17 Phone nullFlavo [facility] [id number] Memoria 15:17:00 04:59:59 Message r [place] 07 [facility] 2017-06-15 2017-06-16 Outpatient 91 [facility] [id number] 10:17:00 23:59:59 07 2017-06-13 2017-06-15 Phone nullFlavo [facility] [id number] Memoria 17:12:00 04:59:59 Message r [place] [facility] 2017-06-13 2017-06-15 Phone nullFlavo [facility] [id number] Memoria 17:12:00 04:59:59 Message r [facility] 06 [facility] 2017-06-13 2017-06-14 Outpatient 91 [id number] 12:12:00 23:59:59 06 2016-06-21 2016-06-21 Bedded nullFlavo [facility] [id number] Memoria 13:17:00 14:30:00 Outpatient r [address] 2016-06-21 2016-06-21 Bedded nullFlavo [facility] [id number] Memoria 13:17:00 14:30:00 Outpatient r [address] 2016-06-21 2016-06-21 Outpatient Anna [facility] [id number] 08:17:00 09:30:00 Ricardo 2016-06-18 2016-06-19 Outpatient nullFlavo [facility] 4543 [id number] Memoria 18:27:00 04:59:00 r [place] 20 [facility] 2016-06-18 2016-06-19 Outpatient nullFlavo [facility] 4543 [id number] Memoria 18:27:00 04:59:00 r [place] 20 [facility] 2016-06-18 2016-06-18 Outpatient Ed [facility] [id number] 13:27:00 23:59:00 Woodrow Angela Sullivan 2016-05-24 2016-05-25 Outpt Diag nullFlavo [facility] [id number] Memoria 20:30:00 04:59:00 Services r Outpatient 00 l Imaging Piter Dumas 2016-05-24 2016-05-25 Outpt Diag nullFlavo [facility] [id number] Memoria 20:30:00 04:59:00 Services r Outpatient 00 l Imaging Piter [place] 2016-05-24 2016-05-24 Outpatient Thomas Kev [facility] [id number] 15:30:00 23:59:00 Primo 00 2016-03-30 2016-04-01 Phone nullFlavo [facility] [id number] Memoria 16:36:00 04:59:59 Message r [place] 04 l [facility] 2016-03-30 2016-04-01 Phone nullFlavo [facility] [id number] Memoria 16:36:00 04:59:59 Message r [place] 04 l [facility] 2016-03-30 2016-03-31 Outpatient 91 [facility] [id number] 11:36:00 23:59:59 04 2016-02-17 2016-02-18 Outpatient nullFlavo [facility] 4543 [id number] Memoria 18:05:00 04:59:00 r [place] 17 [facility] 2016-02-17 2016-02-18 Outpatient nullFlavo [facility] 4543 [id number] Memoria 18:05:00 04:59:00 r [place] 17 l [facility] 2016-02-17 2016-02-17 Outpatient Anna [facility] [id number] 13:05:00 23:59:00 Ricardo 17 2015-08-19 2015-08-20 Outpatient nullFlavo [facility] 4543 [id number] Memoria 18:56:00 04:59:00 r [place] 16 l [facility] 2015-08-19 2015-08-20 Outpatient nullFlavo [facility] 4543 [id number] Memoria 18:56:00 04:59:00 r [place] 16 l [facility] 2015-08-19 2015-08-19 Outpatient Anna [facility] [id number] 13:56:00 23:59:00 Ricardo 16 2015-08-06 2015-08-08 Phone nullFlavo [facility] [id number] Memoria 13:42:00 04:59:59 Message r [place] 03 l [facility] 2015-08-06 2015-08-08 Phone nullFlavo [facility] [id number] Memoria 13:42:00 04:59:59 Message r [place] 03 l [facility] 2015-08-06 2015-08-07 Outpatient [place] [id number] 08:42:00 23:59:59 03 2015-05-09 2015-05-11 Phone nullFlavo [facility] [id number] Memoria 13:47:00 04:59:59 Message r [place] 02 l [facility]ilda nn Advanced Heart Failure 2015-05-09 2015-05-11 Phone nullFlavo [facility] [id number] Memoria 13:47:00 04:59:59 Message r [place] 02 l [facility] 2015-05-09 2015-05-10 Outpatient 2.16.840. 2.16.840.1. 4 [id number] 08:47:00 23:59:59 [id number] 3.615.0.1 5.0.667 76 6681-10-28 2014-09-12 Inpatient nullFlavo [facility] [id number] Memoria 17:29:00 23:30:[address] 2014-09-10 2014-09-12 Inpatient nullFlavo [facility] [id number] Memoria 17:29:00 23:30:[address] 2014-09-10 2014-09-12 Outpatient Anna, 2.16.840. 2.16.840.1. [id number] 12:29:00 18:30:00 Ricardo [id number] 3.615.0.1 5.0.850 [id number] 7913-06-23 2014-05-07 Outpatient [place] [id number] Memoria 12:46:00 04:59:[address] 2014-05-06 2014-05-07 Outpatient [place] [id number] Memoria 12:46:00 04:59:[address] 2014-05-06 2014-05-06 Outpatient Anna, 2.16.840. 2.16.840.1. [id number] 07:46:00 23:59:00 Ricardo [id number] 3.615.0.1 5.0.015 [id number] 5498-04-23 2014-03-08 Phone [facility] [id number] Memoria 21:33:00 04:59:59 Message r [address] Advanced Heart Failure 2014-03-06 2014-03-08 Phone Critical access hospital [id number] Memoria 21:33:00 04:59:59 Message r [address] Advanced Heart Failure 2014-03-06 2014-03-07 Outpatient 2.16.840. 2.16.840.1. 4 [id number] 16:33:00 23:59:59 [id number]. [id number] 3.615.0.1 5.0.248 13 0120-03-10 2014-01-22 Outpatient [place] [id number] Memoria 17:59:00 04:59:00 r [place] [id number] [address] 2014-01-21 2014-01-22 Outpatient [place] [id number] [facility] 17:59:00 04:59:00 r [place] [id number] [address] 2014-01-21 2014-01-21 Outpatient Anna, 2.16.840. 2.16.840.1. [id number] 12:59:00 23:59:00 Ricardo [id number]. [id number] 3.615.0.1 5.0.692 85 2967-12-04 2013-10-18 Outpatient 2.16.840. 2.16.840.1. 4 [id number] [facility] 13:57:00 23:59:59 1.503586. [id number] 00 l 3.615.0.1 5.0.101 Mic n 01 [facility] Heart Failure 2013-09-06 2013-09-06 Outpatient 2.16.840. 2.16.840.1. 4 [id number] [facility] 12:46:00 23:59:00 1.208589. [id number] l 3.615.0.1 5.0.100 Mic n 00 Hospita l 2013-09-06 2013-09-06 Outpatient 2.16.840. 2.16.840.1. 4 [id number] [facility] 12:46:00 23:59:00 1.183938. 290360.3.61 l 3.615.0.1 5.0.100 Mic n 00 Hospita l 2013-09-06 2013-09-06 Outpatient 2.16.840. 2.16.840.1. 4 [id number] [facility] 12:46:00 23:59:00 1.513310. 774948.3.61 l 3.615.0.1 5.0.100 Mic n 00 Hospita l 2013-09-06 2013-09-06 Outpatient 2.16.840. 2.16.840.1. 4 [id number] [facility] 12:46:00 23:59:00 1.419241. 926217.3.61 l 3.615.0.1 5.0.100 Mic n 00 Hospita l 2013-09-06 2013-09-06 Outpatient 2.16.840. 2.16.840.1. 4 [id number] [facility] 12:46:00 23:59:00 1.646800. 256664.3.61 l 3.615.0.1 5.0.100 Mic n 00 Hospita l 2013-09-06 2013-09-[address] [facility] 4543 [id number] Memoria 12:46:00 12:46:00 r Medical 08 [facility] 2013-09-06 2013-09-06 [facility] [id number] [facility] 12:46:00 12:46:00 r Medical 08 [facility] 2013-04-25 2013-04-25 [facility] [id number] [facility] 08:09:00 08:09:00 r Medical 07 [facility] 2013-04-24 2013-04-24 [facility] [id number] [facility] 14:40:00 14:40:00 r Medical 06 [facility] 2013-04-24 2013-04-24 [facility] [id number] [facility] 14:40:00 14:40:00 r Medical 06 [facility] Results Test Description Test Time Test Comments Results Result [facility] Comments - NM MYOCRD SPECT 2020-10-03 R/S MULT 15[facility]26:[facility] 1955 Sex: M Patient Name: MAYNOR BAXTER Unit No: [id number] EXAMS: CPT CODE: [id number] NM MYOCRD SPECT R/S MULT [id number] Exercise treadmill nuclear stress test Date: October 02, 2020 Indication: Chest pain, coronary artery disease PROCEDURE: The patient was brought to the stress lab in the resting and fasting state. Informed consent was obtained. Patient was infused 8.6 mCi of Cardiolite intravenously. Resting SPECT images were obtained in 3 standard planes. The patient was then exercised according to Kev protocol for 9 minutes and 2 seconds achieving a maximal heart rate of 137 which represented 87% of the maximal age-predicted heart rate. Within next 30 seconds patient was given 26.7 mCi of Cardiolite intravenously. All electrocardiogram were reviewed by supervising physician Dr. Armendariz. Stress SPECT images were then obtained in 3 standard planes. FINDINGS: Myocardial perfusion imaging demonstrate normal radiotracer uptake in the LV myocardium, without any evidence of infarct or ischemia. Gated ejection fraction was normal at 69 %. CONCLUSIONS: 1. Negative Lexiscan nuclear stress test. 2. Normal derived gated ejection fraction at 69 %. at 1526 Reported and signed by: Simba Armendariz M.D. CC: Ricardo Castillo MD Technologist: Catherine Hernandez Trscr Dt/Tm: 10/03/2020 (1526) by:[facility] Printed Date/Time: 10/03/2020 (1529) Name: MAYNOR BAXTER [facility] Phys: Ricardo Flores MD [address] : 1955 Age: 65 Sex: [place] [address] Loc: P.NUC Exam Date: 10/02/2020 Status: DEP CLI PH: FAX: PAGE 1 Signed Report HEMATOLOGY 2019-05-19 07:54:00 Test Item Value Reference Range Interpretation Comme nts Monocytes # (test code = 0.4 See_Comment [A utomated message] The system which Monocytes #) generated this result transmitted reference range : <=0.8. The reference range was not u sed to interpret this result as dale l/abnormal. [facility] HospitalKdlhbuoCTPZFURCBO6534-13-09 07:54:00 Test Item Value Reference Range Interpretation Comments Eosinophils # (test code 0.5 See_Comment [A utomated message] The = Eosinophils #) system whic h generated this result tra nsmitted reference range : <=0.5. The reference r marely was not used to int erpret this result as normal/abnormal . [facility] HospitalSivkvwtYHLKSORQYI8442-38-51 07:54:00 Test Item Value Reference Range Interpretation Comments Hgb (test code = Hgb) 13.6 14.0-18.0 [facility] HospitalEubewbtJOXBSWGJXK8769-35-64 07:54:00 Test Item Value Reference Range Interpretation Comments RDW (test code = RDW) 14.5 11.5-14.5 [facility] HospitalRduxefvEFHBFIDYBG1217-60-86 07:54:00 Test Item Value Reference Range Interpretation Comments MCV (test code = MCV) 89.6 80.0-94.0 [facility] HospitalBfqdlwlLCUVCRRDTK7640-25-86 07:54:00 Test Item Value Reference Range Interpretation Comments WBC (test code = WBC) 6.2 3.7-10.4 [facility] HospitalIftnyesUBWRINMLQM7868-70-06 07:54:00 Test Item Value Reference Range Interpretation Comments RBC (test code = RBC) 4.54 4.70-6.10 [facility] HospitalYrtwvxjDYMVBSCUGY5334-92-89 07:54:00 Test Item Value Reference Range Interpretation Comments Hct (test code = Hct) 40.7 42.0-54.0 [facility] HospitalXjpbifzNXHOCHIIEN7161-11-29 07:54:00 Test Item Value Reference Range Interpretation Comments Platelet (test code = Platelet) 164 133-450 [facility] HospitalLnmhlekPWDCLMWZZG6384-52-54 07:54:00 Test Item Value Reference Range Interpretation Comments MCH (test code = MCH) 30.0 pg 27.0-31.0 [facility] HospitalPlryoehILJIFISPWB7052-49-91 07:54:00 Test Item Value Reference Range Interpretation Comments MCHC (test code = MCHC) 33.5 32.0-36.0 [facility] HospitalWsgqqstUGQJBQYKZX7836-57-67 07:54:00 Test Item Value Reference Range Interpretation Comments MPV (test code = MPV) 9.7 7.4-10.4 [facility] OJRYOOT3432-72-85 07:54:00 Test Item Value Reference Range Interpretation Comments Troponin-I (test code no gt See_Comment [Auto mated message] The = Troponin-I) system which g enerated this result transmit rolly reference range : <=0.40. The reference r marely was not used to interpr et this result as dale l/abnormal. [facility] TULZVLF1702-96-92 07:54:00 Test Item Value Reference Range Interpretation Comments Troponin-I (test code no gt See_Comment [Auto mated message] The = Troponin-I) system which g enerated this result transmit rolly reference range : <=0.40. The reference r marely was not used to interpr et this result as dale l/abnormal. [facility]2019-07-06 07:54:00 Test Item Value Reference Range Interpretation Comments eGFR (test code = eGFR) 74 [facility]2019-07-06 07:54:00 Test Item Value Reference Range Interpretation Comments Calcium Lvl (test code = Calcium Lvl) 8.5 8.5-10.5 [facility]2019-07-06 07:54:00 Test Item Value Reference Range Interpretation Comments Chloride Lvl (test code = Chloride Lvl) 110 95-109 [facility]2019-07-06 07:54:00 Test Item Value Reference Range Interpretation Comments CO2 (test code = CO2) 22 24-32 [facility]2019-07-06 07:54:00 Test Item Value Reference Range Interpretation Comments Potassium Lvl (test code = Potassium 3.8 3.5-5.1 Lvl) [facility]2019-07-06 07:54:00 Test Item Value Reference Range Interpretation Comments Sodium Lvl (test code = Sodium Lvl) 140 135-145 [facility]2019-07-06 07:54:00 Test Item Value Reference Range Interpretation Comments BUN (test code = BUN) 16 7-22 [facility]2019-07-06 07:54:00 Test Item Value Reference Range Interpretation Comments Creatinine Lvl (test code = Creatinine 1.06 0.50-1.40 Lvl) [facility]2019-07-06 07:54:00 Test Item Value Reference Range Interpretation Comments Glucose Lvl (test code = Glucose Lvl) 90 70-99 [facility]2019-07-06 07:54:00 Test Item Value Reference Range Interpretation Comments AGAP (test code = AGAP) 11.8 10.0-20.0 [facility]2019-07-06 07:54:00 Test Item Value Reference Range Interpretation Comments eGFR (test code = eGFR) 74 [facility]2019-07-06 07:54:00 Test Item Value Reference Range Interpretation Comments Phosphorus (test code = Phosphorus) 3.7 2.5-4.5 [facility]2019-07-06 07:54:00 Test Item Value Reference Range Interpretation Comments Magnesium Lvl (test code = Magnesium 2.2 1.8-2.4 Lvl) [facility] HospitalZqseimfYDFYTKUBGC0117-80-52 07:54:00 Test Item Value Reference Range Interpretation Comments Lymphocytes (test code = Lymphocytes) 41.8 20.0-40.0 [facility] HospitalWcmzchbLEMYDGMXNR3610-24-41 07:54:00 Test Item Value Reference Range Interpretation Comments Segs (test code = Segs) 41.9 45.0-75.0 [facility] HospitalZqupeltWNJCUEIAJF0573-70-08 07:54:00 Test Item Value Reference Range Interpretation Comments Eosinophils (test code = 7.4 See_Comment [A utomated message] The Eosinophils) system which ge nerated this result tra nsmitted reference range : <=4.0. The reference r marely was not used to int erpret this result as normal/abnormal . [facility] HospitalFutsjaxAXYCWIHDFC9476-32-25 07:54:00 Test Item Value Reference Range Interpretation Comments Lymphocytes # (test code = Lymphocytes 2.6 1.0-5.5 #) [facility] HospitalQllvzhiDZBOTFURXU2602-32-85 07:54:00 Test Item Value Reference Range Interpretation Comments Basophils (test code = 1.7 See_Comment [Aut omated message] The Basophils) system which ge nerated this result tra nsmitted reference range : <=1.0. The reference r marely was not used to int erpret this result as normal/abnormal . [facility] HospitalHxlswkbFSRGWQMVDW2629-40-65 07:54:00 Test Item Value Reference Range Interpretation Comments Monocytes (test code = Monocytes) 7.2 2.0-12.0 [facility] HospitalNdojowyDIRUNEJGPF4642-76-74 07:54:00 Test Item Value Reference Range Interpretation Comments Neutrophils # (test code = Neutrophils 2.6 1.5-8.1 #) [facility] HospitalWiftfkcYFWPVGJGEL0000-27-72 07:54:00 Test Item Value Reference Range Interpretation Comments Basophils # (test code 0.1 See_Comment [Aut omated message] The = Basophils #) system which generated this result tra nsmitted reference range : <=0.2. The reference r marely was not used to int erpret this result as normal/abnormal . [facility]2019-07-06 07:54:00 Test Item Value Reference Range Interpretation Comments Calcium Lvl (test code = Calcium Lvl) 8.5 8.5-10.5 [facility] HospitalPxjwqduKPTXBPXBIZ3726-25-10 07:54:00 Test Item Value Reference Range Interpretation Comments Monocytes # (test code 0.4 See_Comment [Aut omated message] The = Monocytes #) system which generated this result tra nsmitted reference range : <=0.8. The reference r marely was not used to int erpret this result as normal/abnormal . [facility] HospitalUgnojanACOAVSMYUB3868-51-56 07:54:00 Test Item Value Reference Range Interpretation Comments Eosinophils # (test code 0.5 See_Comment [A utomated message] The = Eosinophils #) system whic h generated this result tra nsmitted reference range : <=0.5. The reference r marely was not used to int erpret this result as normal/abnormal . [facility] HospitalTolzgbxMGVFLBLLUG5919-06-34 07:54:00 Test Item Value Reference Range Interpretation Comments Hgb (test code = Hgb) 13.6 14.0-18.0 [facility] HospitalMvrncmnNVTAVARPOM6164-66-03 07:54:00 Test Item Value Reference Range Interpretation Comments RDW (test code = RDW) 14.5 11.5-14.5 [facility] HospitalJxhscnbEKKJHROBBV4525-44-08 07:54:00 Test Item Value Reference Range Interpretation Comments MCV (test code = MCV) 89.6 80.0-94.0 [facility] HospitalAgdixhvXPUJHXSOIE4772-53-06 07:54:00 Test Item Value Reference Range Interpretation Comments WBC (test code = WBC) 6.2 3.7-10.4 [facility] HospitalKreozysTRSEFMLBCS5731-19-65 07:54:00 Test Item Value Reference Range Interpretation Comments RBC (test code = RBC) 4.54 4.70-6.10 [facility] HospitalLvbzpemBBLAQETBCU5230-90-96 07:54:00 Test Item Value Reference Range Interpretation Comments Hct (test code = Hct) 40.7 42.0-54.0 [facility] HospitalBecmfnrPRSROXGRDP1387-02-26 07:54:00 Test Item Value Reference Range Interpretation Comments Platelet (test code = Platelet) 164 133-450 [facility] HospitalSgnbdgnZBBCWXEEIN9297-71-05 07:54:00 Test Item Value Reference Range Interpretation Comments MCH (test code = MCH) 30.0 pg 27.0-31.0 [facility]2019-07-06 07:54:00 Test Item Value Reference Range Interpretation Comments Chloride Lvl (test code = Chloride Lvl) 110 95-109 [facility] HospitalUiljsztZBEBKCGUVJ9458-34-90 07:54:00 Test Item Value Reference Range Interpretation Comments MCHC (test code = MCHC) 33.5 32.0-36.0 [facility] HospitalRikobslGTYRHJNKCL5989-32-59 07:54:00 Test Item Value Reference Range Interpretation Comments MPV (test code = MPV) 9.7 7.4-10.4 [facility]2019-07-06 07:54:00 Test Item Value Reference Range Interpretation Comments CO2 (test code = CO2) 22 24-32 [facility]2019-07-06 07:54:00 Test Item Value Reference Range Interpretation Comments Potassium Lvl (test code = Potassium 3.8 3.5-5.1 Lvl) [facility]2019-07-06 07:54:00 Test Item Value Reference Range Interpretation Comments Sodium Lvl (test code = Sodium Lvl) 140 135-145 [facility]2019-07-06 07:54:00 Test Item Value Reference Range Interpretation Comments BUN (test code = BUN) 16 7-22 [facility]2019-07-06 07:54:00 Test Item Value Reference Range Interpretation Comments Creatinine Lvl (test code = Creatinine 1.06 0.50-1.40 Lvl) [facility]2019-07-06 07:54:00 Test Item Value Reference Range Interpretation Comments Glucose Lvl (test code = Glucose Lvl) 90 70-99 [facility]2019-07-06 07:54:00 Test Item Value Reference Range Interpretation Comments AGAP (test code = AGAP) 11.8 10.0-20.0 [facility]2019-07-06 07:54:00 Test Item Value Reference Range Interpretation Comments Phosphorus (test code = Phosphorus) 3.7 2.5-4.5 [facility]2019-07-06 07:54:00 Test Item Value Reference Range Interpretation Comments Magnesium Lvl (test code = Magnesium 2.2 1.8-2.4 Lvl) [facility] HospitalZbkvkcuWUPJEPEDTL2428-51-96 07:54:00 Test Item Value Reference Range Interpretation Comments Lymphocytes (test code = Lymphocytes) 41.8 20.0-40.0 [facility] HospitalTqmfjnxQHDDYNJCRZ7894-03-43 07:54:00 Test Item Value Reference Range Interpretation Comments Segs (test code = Segs) 41.9 45.0-75.0 [facility] HospitalXbdjfoqCMUQBTFSSB9176-34-50 07:54:00 Test Item Value Reference Range Interpretation Comments Eosinophils (test code = 7.4 See_Comment [A utomated message] The Eosinophils) system which ge nerated this result tra nsmitted reference range : <=4.0. The reference r marely was not used to int erpret this result as normal/abnormal . [facility] HospitalCiqdiigDLEFXNVFTP5293-90-44 07:54:00 Test Item Value Reference Range Interpretation Comments Lymphocytes # (test code = Lymphocytes 2.6 1.0-5.5 #) [facility] HospitalFqsduiiCDQEGAOKLA5996-82-23 07:54:00 Test Item Value Reference Range Interpretation Comments Basophils (test code = 1.7 See_Comment [Aut omated message] The Basophils) system which ge nerated this result tra nsmitted reference range : <=1.0. The reference r marely was not used to int erpret this result as normal/abnormal . [facility] HospitalRkydhgtKRUERKPFDB4266-84-42 07:54:00 Test Item Value Reference Range Interpretation Comments Monocytes (test code = Monocytes) 7.2 2.0-12.0 [facility] HospitalDgyeaeqKZUMFNNAZQ5691-82-92 07:54:00 Test Item Value Reference Range Interpretation Comments Neutrophils # (test code = Neutrophils 2.6 1.5-8.1 #) [facility] HospitalQqryctfUFFCTMETVZ2409-47-20 07:54:00 Test Item Value Reference Range Interpretation Comments Basophils # (test code 0.1 See_Comment [Aut omated message] The = Basophils #) system which generated this result tra nsmitted reference range : <=0.2. The reference r marely was not used to int erpret this result as normal/abnormal . [facility] GJGFQFT2103-50-12 03:12:00 Test Item Value Reference Range Interpretation Comments Troponin-I (test code no gt See_Comment [Auto mated message] The = Troponin-I) system which g enerated this result transmit rolly reference range : <=0.40. The reference r marely was not used to interpr et this result as dale l/abnormal. [facility] TSLPVEG0557-33-59 03:12:00 Test Item Value Reference Range Interpretation Comments Troponin-I (test code no gt See_Comment [Auto mated message] The = Troponin-I) system which g enerated this result transmit rolly reference range : <=0.40. The reference r marely was not used to interpr et this result as dale l/abnormal. [facility] ILSUAXH6052-89-99 15:35:00 Test Item Value Reference Range Interpretation Comments Troponin-I (test code no gt See_Comment [Auto mated message] The = Troponin-I) system which g enerated this result transmit rolly reference range : <=0.40. The reference r marely was not used to interpr et this result as dale l/abnormal. [facility] HospitalBoekehaLPJWUOZBKKEA2500-32-62 15:35:00 Test Item Value Reference Range Interpretation Comments AGAP (test code = AGAP) 9.4 10.0-20.0 [facility] HospitalKnkxbulWTZAYQSHWNQS7248-65-57 15:35:00 Test Item Value Reference Range Interpretation Comments Potassium Lvl (test code = Potassium 4.4 3.5-5.1 Lvl) [facility] HospitalYrbwrlvLXKQGQDEIMDL4049-47-46 15:35:00 Test Item Value Reference Range Interpretation Comments CO2 (test code = CO2) 25 24-32 [facility] HospitalLtseayrQHATUIJFCVIC8124-12-80 15:35:00 Test Item Value Reference Range Interpretation Comments Sodium Lvl (test code = Sodium Lvl) 137 135-145 [facility]VthaaxoFCVIQAFXYEYJ6531-85-32 15:35:00 Test Item Value Reference Range Interpretation Comments Chloride Lvl (test code = Chloride Lvl) 107 95-109 [facility] HospitalUhsszkiXDLNOEOHEWWJ6264-81-16 15:35:00 Test Item Value Reference Range Interpretation Comments Creatinine Lvl (test code = Creatinine 1.27 0.50-1.40 Lvl) [facility] HospitalLcmfwovYLIGFTHNMOSZ3373-76-90 15:35:00 Test Item Value Reference Range Interpretation Comments Glucose Lvl (test code = Glucose Lvl) 104 70-99 [facility] HospitalYfbzbzcLMLZCKHKOPGU3734-61-41 15:35:00 Test Item Value Reference Range Interpretation Comments BUN (test code = BUN) 20 7-22 [facility] HospitalImoloakVDTWGFKKXQKQ8494-79-99 15:35:00 Test Item Value Reference Range Interpretation Comments Calcium Lvl (test code = Calcium Lvl) 8.9 8.5-10.5 [facility] HospitalHxojmblHYDNKHAANCSJ0473-23-61 15:35:00 Test Item Value Reference Range Interpretation Comments eGFR (test code = eGFR) 60 [facility] HospitalDyrxifnWTHSAOUPNJ4086-69-09 15:35:00 Test Item Value Reference Range Interpretation Comments PT (test code = PT) 12.6 s 12.0-14.7 [facility] HospitalDfkavmuOGKDCGSNEO5001-62-21 15:35:00 Test Item Value Reference Range Interpretation Comments INR (test code = INR) 0.96 1 0.85-1.17 [facility] HospitalGuqwtnlVGQYABYTNB2042-73-84 15:35:00 Test Item Value Reference Range Interpretation Comments PTT (test code = PTT) 29.7 s 22.9-35.8 [facility] HospitalMbixnwkNPXDTLBMQL6616-45-67 15:35:00 Test Item Value Reference Range Interpretation Comments Platelet (test code = Platelet) 151 133-450 [facility] HospitalKouwqogHFBXCJDGCO1820-40-13 15:35:00 Test Item Value Reference Range Interpretation Comments MPV (test code = MPV) 9.3 7.4-10.4 [facility] HospitalGishofuLHSFNPOJVZ9484-19-88 15:35:00 Test Item Value Reference Range Interpretation Comments MCH (test code = MCH) 29.5 pg 27.0-31.0 [facility] HospitalJjnxxedKGKMICAHCB7995-44-52 15:35:00 Test Item Value Reference Range Interpretation Comments MCHC (test code = MCHC) 33.2 32.0-36.0 [facility] HospitalGfxljziMSDDJCHQWQ2088-23-18 15:35:00 Test Item Value Reference Range Interpretation Comments RDW (test code = RDW) 14.2 11.5-14.5 [facility] HospitalAjcysurIYTAIGIPJH6745-47-13 15:35:00 Test Item Value Reference Range Interpretation Comments Hct (test code = Hct) 40.3 42.0-54.0 [facility] HospitalPwuuffsFLEQLGARBD2568-40-14 15:35:00 Test Item Value Reference Range Interpretation Comments MCV (test code = MCV) 88.7 80.0-94.0 [facility] HospitalGhawthbBIBBHBDBYY2638-30-41 15:35:00 Test Item Value Reference Range Interpretation Comments RBC (test code = RBC) 4.54 4.70-6.10 [facility] HospitalIgllwjfNBFRSCEOMI6222-51-77 15:35:00 Test Item Value Reference Range Interpretation Comments Hgb (test code = Hgb) 13.4 14.0-18.0 [facility] HospitalNjxndgjSPBUNSQKMF7893-79-61 15:35:00 Test Item Value Reference Range Interpretation Comments WBC (test code = WBC) 4.9 3.7-10.4 [facility] HospitalMxmifbkZFSDQEZPCP7598-98-54 15:35:00 Test Item Value Reference Range Interpretation Comments Monocytes (test code = Monocytes) 9.2 2.0-12.0 [facility] HospitalTwqassgNGZWBZNGJR4512-01-87 15:35:00 Test Item Value Reference Range Interpretation Comments Basophils (test code = 2.5 See_Comment [Aut omated message] The Basophils) system which ge nerated this result tra nsmitted reference range : <=1.0. The reference r marely was not used to int erpret this result as normal/abnormal . [facility] HospitalVxzjfdgGHBDIZNPQW6694-45-02 15:35:00 Test Item Value Reference Range Interpretation Comments Neutrophils # (test code = Neutrophils 1.9 1.5-8.1 #) [facility] HospitalPxhqsrdLPETDCQVIS1158-91-30 15:35:00 Test Item Value Reference Range Interpretation Comments Eosinophils (test code = 9.5 See_Comment [A utomated message] The Eosinophils) system which ge nerated this result tra nsmitted reference range : <=4.0. The reference r marely was not used to int erpret this result as normal/abnormal . [facility] HospitalQfqdanbIKBDUSRJXW5964-66-36 15:35:00 Test Item Value Reference Range Interpretation Comments Lymphocytes # (test code = Lymphocytes 2.0 1.0-5.5 #) [facility] HospitalMdsxosuHRCTIUNOKB0448-72-84 15:35:00 Test Item Value Reference Range Interpretation Comments Monocytes # (test code 0.5 See_Comment [Aut omated message] The = Monocytes #) system which generated this result tra nsmitted reference range : <=0.8. The reference r marely was not used to int erpret this result as normal/abnormal . [facility] HospitalDnokxwpJSCOIBHAHR7411-40-01 15:35:00 Test Item Value Reference Range Interpretation Comments Eosinophils # (test code 0.5 See_Comment [A utomated message] The = Eosinophils #) system whic h generated this result tra nsmitted reference range : <=0.5. The reference r marely was not used to int erpret this result as normal/abnormal . [facility] HospitalXmfuxcxLIPASNWNIL7302-55-90 15:35:00 Test Item Value Reference Range Interpretation Comments Segs (test code = Segs) 39.0 45.0-75.0 [facility]XoocdomNPQHTAAQND9808-28-76 15:35:00 Test Item Value Reference Range Interpretation Comments Lymphocytes (test code = Lymphocytes) 39.8 20.0-40.0 [facility]xylofwOYHXPDFHDP7862-24-20 15:35:00 Test Item Value Reference Range Interpretation Comments Basophils # (test code 0.1 See_Comment [Aut omated message] The = Basophils #) system which generated this result tra nsmitted reference range : <=0.2. The reference r marely was not used to int erpret this result as normal/abnormal . [facility] TylerSamlwloANNHBARCWE6601-96-46 15:35:00 Test Item Value Reference Range Interpretation Comments [facility] [facility] HIV 4th GEN (test Negative *NA*(05/18/19 code = CDC HIV 4th 10:35 AM) GEN) [facility] [id number] 15:35:00 Test Item Value Reference Range Interpretation Comments Troponin-I (test code no gt See_Comment [Auto mated message] The = Troponin-I) system which g enerated this result transmit rolly reference range : <=0.40. The reference r marely was not used to interpr et this result as dale l/abnormal. [facility] TylerSztkdzzRFLPOWDDLCJC8681-63-08 15:35:00 Test Item Value Reference Range Interpretation Comments AGAP (test code = AGAP) 9.4 10.0-20.0 [facility] TylerFilqtllKDXNGRAVIKNL1967-25-79 15:35:00 Test Item Value Reference Range Interpretation Comments Potassium Lvl (test code = Potassium 4.4 3.5-5.1 Lvl) [facility] TylerWkadbmoDILLFRAFENGP9537-38-39 15:35:00 Test Item Value Reference Range Interpretation Comments CO2 (test code = CO2) 25 24-32 [facility] TylerKhrcaotRHRLAPJONZHG5942-07-71 15:35:00 Test Item Value Reference Range Interpretation Comments Sodium Lvl (test code = Sodium Lvl) 137 135-145 [facility] HospitalVuztpfpQQTEEZUCSNKS0667-93-51 15:35:00 Test Item Value Reference Range Interpretation Comments Chloride Lvl (test code = Chloride Lvl) 107 95-109 [facility] HospitalKchrmlkKOMKWHFOWVRQ4340-94-37 15:35:00 Test Item Value Reference Range Interpretation Comments Creatinine Lvl (test code = Creatinine 1.27 0.50-1.40 Lvl) [facility] HospitalRibbfihGWRBOASVDGOE3187-41-51 15:35:00 Test Item Value Reference Range Interpretation Comments Glucose Lvl (test code = Glucose Lvl) 104 70-99 [facility] HospitalVkxvmipGNDRRSEGRMTM2367-79-34 15:35:00 Test Item Value Reference Range Interpretation Comments BUN (test code = BUN) 20 7-22 [facility] HospitalVxskefpDCQPEDNQBQXB1730-63-85 15:35:00 Test Item Value Reference Range Interpretation Comments Calcium Lvl (test code = Calcium Lvl) 8.9 8.5-10.5 [facility] HospitalFhpzorpFXTRJZTJSAAC8059-93-31 15:35:00 Test Item Value Reference Range Interpretation Comments eGFR (test code = eGFR) 60 [facility] HospitalGizdhehEWPQMRDHVW2435-60-54 15:35:00 Test Item Value Reference Range Interpretation Comments PT (test code = PT) 12.6 s 12.0-14.7 [facility] HospitalLywfllgDGBQNIERNI9695-21-28 15:35:00 Test Item Value Reference Range Interpretation Comments INR (test code = INR) 0.96 1 0.85-1.17 [facility] HospitalPmlyjtrIBOCBNPGMK6757-36-69 15:35:00 Test Item Value Reference Range Interpretation Comments PTT (test code = PTT) 29.7 s 22.9-35.8 [facility] HospitalSgxdanlJIIINPYUIR3158-52-31 15:35:00 Test Item Value Reference Range Interpretation Comments Platelet (test code = Platelet) 151 133-450 [facility] HospitalCpzsgafXSQLBZKCBK7669-43-81 15:35:00 Test Item Value Reference Range Interpretation Comments MPV (test code = MPV) 9.3 7.4-10.4 [facility] HospitalSvxfnuzQUPFVKHQLP0289-60-52 15:35:00 Test Item Value Reference Range Interpretation Comments MCH (test code = MCH) 29.5 pg 27.0-31.0 [facility] HospitalGxnysgeVTYRVXLIVG3110-77-07 15:35:00 Test Item Value Reference Range Interpretation Comments MCHC (test code = MCHC) 33.2 32.0-36.0 [facility] HospitalFmrihdzCVXXRLBROR2691-03-83 15:35:00 Test Item Value Reference Range Interpretation Comments RDW (test code = RDW) 14.2 11.5-14.5 [facility] HospitalIpovdwbHFROEBLMKC7363-56-89 15:35:00 Test Item Value Reference Range Interpretation Comments Hct (test code = Hct) 40.3 42.0-54.0 [facility] HospitalThafairTWXNWCXFTF4116-33-68 15:35:00 Test Item Value Reference Range Interpretation Comments MCV (test code = MCV) 88.7 80.0-94.0 [facility] HospitalUngasqfRKERQXMBHV2915-58-85 15:35:00 Test Item Value Reference Range Interpretation Comments RBC (test code = RBC) 4.54 4.70-6.10 [facility] HospitalHgldnjfBRFXTIZQWL5745-95-61 15:35:00 Test Item Value Reference Range Interpretation Comments Hgb (test code = Hgb) 13.4 14.0-18.0 [facility] HospitalOaulyooPDNWLNRJFU4711-61-88 15:35:00 Test Item Value Reference Range Interpretation Comments WBC (test code = WBC) 4.9 3.7-10.4 [facility] HospitalUbynhoaZIOMFRURMQ7657-93-67 15:35:00 Test Item Value Reference Range Interpretation Comments Monocytes (test code = Monocytes) 9.2 2.0-12.0 [facility] HospitalNzrpqgiTERNTTHZOK7876-68-09 15:35:00 Test Item Value Reference Range Interpretation Comments Basophils (test code = 2.5 See_Comment [Aut omated message] The Basophils) system which ge nerated this result tra nsmitted reference range : <=1.0. The reference r marely was not used to int erpret this result as normal/abnormal . [facility] HospitalRktnyzhGZTWJFTTON3917-48-26 15:35:00 Test Item Value Reference Range Interpretation Comments Neutrophils # (test code = Neutrophils 1.9 1.5-8.1 #) [facility] HospitalKmnozhqBVSWHUZWZY1758-82-93 15:35:00 Test Item Value Reference Range Interpretation Comments Eosinophils (test code = 9.5 See_Comment [A utomated message] The Eosinophils) system which ge nerated this result tra nsmitted reference range : <=4.0. The reference r marley was not used to int erpret this result as normal/abnormal . [facility] HospitalIgzkmjeTGPYTJRESH7959-82-31 15:35:00 Test Item Value Reference Range Interpretation Comments Lymphocytes # (test code = Lymphocytes 2.0 1.0-5.5 #) [facility] HospitalZcrnakmVCVJYHIYUN9984-97-18 15:35:00 Test Item Value Reference Range Interpretation Comments Monocytes # (test code 0.5 See_Comment [Aut omated message] The = Monocytes #) system which generated this result tra nsmitted reference range : <=0.8. The reference r marely was not used to int erpret this result as normal/abnormal . [facility] HospitalExgwrxjQSEQQZRBEE2171-55-82 15:35:00 Test Item Value Reference Range Interpretation Comments Eosinophils # (test code 0.5 See_Comment [A utomated message] The = Eosinophils #) system whic h generated this result tra nsmitted reference range : <=0.5. The reference r marely was not used to int erpret this result as normal/abnormal . [facility] HospitalXvkctyvOQLGWBDDPM4119-96-82 15:35:00 Test Item Value Reference Range Interpretation Comments Segs (test code = Segs) 39.0 45.0-75.0 [facility] HospitalVdhevnxKMDRUTMZCY2308-23-78 15:35:00 Test Item Value Reference Range Interpretation Comments Lymphocytes (test code = Lymphocytes) 39.8 20.0-40.0 [facility] HospitalRsfdrvjCGIOVZOOXJ9188-63-16 15:35:00 Test Item Value Reference Range Interpretation Comments Basophils # (test code 0.1 See_Comment [Aut omated message] The = Basophils #) system which generated this result tra nsmitted reference range : <=0.2. The reference r marely was not used to int erpret this result as normal/abnormal . [facility] TylerGpqxkkeYFQILSBYSG6662-13-76 15:35:00 Test Item Value Reference Range Interpretation Comments CDC HIV 4th GEN (test Negative *NA*(05/18/19 code = CDC HIV 4th 10:35 AM) GEN) [facility] [id number] 13:25:00 Test Item Value Reference Range Interpretation Comments Antibody Scrn (test Negative (06/21/16 8:25 code = Antibody Scrn) AM) [facility] AKIOQJK1528-08-09 13:25:00 Test Item Value Reference Range Interpretation Comments ABO/Rh (test code = ABO/Rh) A POS [facility] HospitalCuff[facility] [id number] 13:25:00 Test Item Value Reference Range Interpretation Comments Magnesium Lvl (test code = Magnesium 2.0 1.8-2.4 Lvl) [facility] HospitalC[facility] JJFSG4464-95-49 13:25:00 Test Item Value Reference Range Interpretation Comments Phosphorus (test code = Phosphorus) 3.8 2.5-4.5 [facility] HospitalSwiunttBCOYJZFDGKZY7800-37-28 13:25:00 Test Item Value Reference Range Interpretation Comments AGAP (test code = AGAP) 11.2 10.0-20.0 [facility] HospitalJyjchaeLQLRDSJYCZGQ2731-17-01 13:25:00 Test Item Value Reference Range Interpretation Comments eGFR (test code = eGFR) 66 [facility] HospitalGimbowzTFTIKRMWNYQU9116-79-37 13:25:00 Test Item Value Reference Range Interpretation Comments CO2 (test code = CO2) 28 24-32 [facility] HospitalOpetonzNCASTNCHZKLP0406-08-22 13:25:00 Test Item Value Reference Range Interpretation Comments Chloride Lvl (test code = Chloride Lvl) 106 95-109 [facility] HospitalVwgldzcNLIENGTVXYYO0825-68-77 13:25:00 Test Item Value Reference Range Interpretation Comments Calcium Lvl (test code = Calcium Lvl) 8.3 8.5-10.5 [facility] HospitalJjkohsiGRULLSMMYUAH1332-83-07 13:25:00 Test Item Value Reference Range Interpretation Comments Creatinine Lvl (test code = Creatinine 1.19 0.50-1.40 Lvl) [facility] HospitalZncarvgFCBPIOKIKODB1319-28-01 13:25:00 Test Item Value Reference Range Interpretation Comments Potassium Lvl (test code = Potassium 4.2 3.5-5.1 Lvl) [facility] HospitalAzknornXQEMUWKJKZKR2879-79-38 13:25:00 Test Item Value Reference Range Interpretation Comments Sodium Lvl (test code = Sodium Lvl) 141 135-145 [facility] HospitalBsbiqxtQNVXKVJUKCQO9235-91-33 13:25:00 Test Item Value Reference Range Interpretation Comments BUN (test code = BUN) 12 7-22 [facility] HospitalAxjwlwsGUPAXYBGGDSM7318-67-82 13:25:00 Test Item Value Reference Range Interpretation Comments Glucose Lvl (test code = Glucose Lvl) 106 70-99 [facility] HospitalAtwhnmyNYCXIPYBRJ9868-71-19 13:25:00 Test Item Value Reference Range Interpretation Comments Basophils # (test code 0.1 See_Comment [Aut omated message] The = Basophils #) system which generated this result tra nsmitted reference range : <=0.2. The reference r marely was not used to int erpret this result as normal/abnormal . [facility] HospitalAbbizsvPQFAJPUAGV0641-19-39 13:25:00 Test Item Value Reference Range Interpretation Comments Monocytes # (test code 0.5 See_Comment [Aut omated message] The = Monocytes #) system which generated this result tra nsmitted reference range : <=0.8. The reference r marely was not used to int erpret this result as normal/abnormal . [facility] HospitalLferfryDPPICACTXU3729-46-11 13:25:00 Test Item Value Reference Range Interpretation Comments Eosinophils # (test code 0.3 See_Comment [A utomated message] The = Eosinophils #) system wh h generated this result tra nsmitted reference range : <=0.5. The reference r marely was not used to int erpret this result as normal/abnormal . [facility] HospitalUaiyegwBPQNKCQYJR8688-91-12 13:25:00 Test Item Value Reference Range Interpretation Comments Eosinophils (test code = 5.3 See_Comment [A utomated message] The Eosinophils) system which ge nerated this result tra nsmitted reference range : <=4.0. The reference r marely was not used to int erpret this result as normal/abnormal . [facility] HospitalPlqwndtTXZGWGZIZW6520-62-75 13:25:00 Test Item Value Reference Range Interpretation Comments Basophils (test code = 1.6 See_Comment [Aut omated message] The Basophils) system which ge nerated this result tra nsmitted reference range : <=1.0. The reference r marely was not used to int erpret this result as normal/abnormal . [facility] HospitalZaquzjuGWUAXWZJJS6890-57-65 13:25:00 Test Item Value Reference Range Interpretation Comments Monocytes (test code = Monocytes) 8.0 2.0-12.0 [facility] HospitalZqqhabwULABZTXBKA3195-63-07 13:25:00 Test Item Value Reference Range Interpretation Comments Lymphocytes # (test code = Lymphocytes 2.3 1.0-5.5 #) [facility] HospitalFvlbojsVHICEOKIHR3473-23-94 13:25:00 Test Item Value Reference Range Interpretation Comments Segs-Bands # (test code = Segs-Bands #) 3.2 1.5-8.1 [facility] HospitalLxfwojcGXDHNMDSCW3840-29-38 13:25:00 Test Item Value Reference Range Interpretation Comments Lymphocytes (test code = Lymphocytes) 35.6 20.0-40.0 [facility] HospitalBlqxiwsTCXQJNNIGC4086-73-09 13:25:00 Test Item Value Reference Range Interpretation Comments Segs (test code = Segs) 49.5 45.0-75.0 [facility] HospitalUdijttsCXQLJWZFHU2131-47-81 13:25:00 Test Item Value Reference Range Interpretation Comments PT (test code = PT) 14.4 s 12.0-14.7 [facility] HospitalWptiajqPPBJNUUGCD4344-68-57 13:25:00 Test Item Value Reference Range Interpretation Comments PTT (test code = PTT) 29.5 s 22.9-35.8 [facility] HospitalEqpyxntLDZSKGEXKS3217-51-32 13:25:00 Test Item Value Reference Range Interpretation Comments INR (test code = INR) 1.09 0.85-1.17 [facility] HospitalEubsamdAICCUGIVEJ2302-18-48 13:25:00 Test Item Value Reference Range Interpretation Comments MCH (test code = MCH) 28.5 pg 27.0-31.0 [facility] HospitalMbopmsvZXPJUNZLGQ4148-09-01 13:25:00 Test Item Value Reference Range Interpretation Comments MCV (test code = MCV) 86.6 80.0-94.0 [facility] HospitalJxrqxcdKVUBQCMOJJ0974-60-64 13:25:00 Test Item Value Reference Range Interpretation Comments RBC (test code = RBC) 4.37 4.70-6.10 [facility] HospitalKcjebjrBQTOYNHCHQ3612-26-28 13:25:00 Test Item Value Reference Range Interpretation Comments Hct (test code = Hct) 37.9 42.0-54.0 [facility] HospitalGrfhzjeIOGIWLLCBS5382-72-24 13:25:00 Test Item Value Reference Range Interpretation Comments Hgb (test code = Hgb) 12.5 14.0-18.0 [facility] HospitalTtkpkrzESHEFFEUZY5329-95-46 13:25:00 Test Item Value Reference Range Interpretation Comments RDW (test code = RDW) 13.6 11.5-14.5 [facility] HospitalMbmdwcaBHJFKAUNAJ3805-94-69 13:25:00 Test Item Value Reference Range Interpretation Comments MCHC (test code = MCHC) 32.9 32.0-36.0 [facility]YtgdbfoXXYAGPTUZL8745-57-44 13:25:00 Test Item Value Reference Range Interpretation Comments MPV (test code = MPV) 9.4 7.4-10.4 [facility] HealthcareOhjgukiZGKSCDLRAI3422-05-92 13:25:00 Test Item Value Reference Range Interpretation Comments Platelet (test code = Platelet) 165 133-450 [facility] HealthcareXpkqjktOLENMCOCEG1048-47-28 13:25:00 Test Item Value Reference Range Interpretation Comments WBC (test code = WBC) 6.4 3.7-10.4 [facility] [employer] TETEVYT0357-86-70 13:25:00 Test Item Value Reference Range Interpretation Comments Antibody Scrn (test Negative (06/21/16 8:25 code = Antibody Scrn) AM) [facility] TylerVital Herd IncTeranetics [facility] MQYMIYR8944-96-96 13:25:00 Test Item Value Reference Range Interpretation Comments ABO/Rh (test code = ABO/Rh) A POS [facility] [employer] [id number] 13:25:00 Test Item Value Reference Range Interpretation Comments Magnesium Lvl (test code = Magnesium 2.0 1.8-2.4 Lvl) [facility] TylerImagination [facility] KWPQS9170-53-52 13:25:00 Test Item Value Reference Range Interpretation Comments Phosphorus (test code = Phosphorus) 3.8 2.5-4.5 [facility] TylerSjsssokVIENHPLVQHFU8021-52-23 13:25:00 Test Item Value Reference Range Interpretation Comments AGAP (test code = AGAP) 11.2 10.0-20.0 [facility] TylerXsljvssTPNRRIABAFOP1001-70-89 13:25:00 Test Item Value Reference Range Interpretation Comments eGFR (test code = eGFR) 66 [facility]IqvyntjPMGSEAGLOCRS9646-70-97 13:25:00 Test Item Value Reference Range Interpretation Comments CO2 (test code = CO2) 28 24-32 [facility] HospitalJonxqvqTSKLJMKNIMVB9000-36-31 13:25:00 Test Item Value Reference Range Interpretation Comments Chloride Lvl (test code = Chloride Lvl) 106 95-109 [facility] HospitalIydufbrNIVMUDFHBSSS2191-37-65 13:25:00 Test Item Value Reference Range Interpretation Comments Calcium Lvl (test code = Calcium Lvl) 8.3 8.5-10.5 [facility] HospitalKndovdvEQLNTKCNVIOZ9871-64-37 13:25:00 Test Item Value Reference Range Interpretation Comments Creatinine Lvl (test code = Creatinine 1.19 0.50-1.40 Lvl) [facility] HospitalDqcodxcZKLLZFRDWEDG5096-37-04 13:25:00 Test Item Value Reference Range Interpretation Comments Potassium Lvl (test code = Potassium 4.2 3.5-5.1 Lvl) [facility] HospitalAvojptaXGDKTBMFQWFX2153-94-65 13:25:00 Test Item Value Reference Range Interpretation Comments Sodium Lvl (test code = Sodium Lvl) 141 135-145 [facility] HospitalBiicfzxBYMMARNDXFFA1143-88-43 13:25:00 Test Item Value Reference Range Interpretation Comments BUN (test code = BUN) 12 7-22 [facility] HospitalEwtaqxqGNEQODDNKVYK1471-93-91 13:25:00 Test Item Value Reference Range Interpretation Comments Glucose Lvl (test code = Glucose Lvl) 106 70-99 [facility] HospitalRujxdueLKEWNDOKGW2470-13-77 13:25:00 Test Item Value Reference Range Interpretation Comments Basophils # (test code 0.1 See_Comment [Aut omated message] The = Basophils #) system which generated this result tra nsmitted reference range : <=0.2. The reference r marely was not used to int erpret this result as normal/abnormal . [facility] HospitalFgdfrxfBWRRGPHASI8441-02-98 13:25:00 Test Item Value Reference Range Interpretation Comments Monocytes # (test code 0.5 See_Comment [Aut omated message] The = Monocytes #) system which generated this result tra nsmitted reference range : <=0.8. The reference r marely was not used to int erpret this result as normal/abnormal . [facility] HospitalXquowexGKBEFIOBAK7296-30-11 13:25:00 Test Item Value Reference Range Interpretation Comments Eosinophils # (test code 0.3 See_Comment [A utomated message] The = Eosinophils #) system whic h generated this result tra nsmitted reference range : <=0.5. The reference r marely was not used to int erpret this result as normal/abnormal . [facility] HospitalInqdsapBZNMHIEAEK1998-90-13 13:25:00 Test Item Value Reference Range Interpretation Comments Eosinophils (test code = 5.3 See_Comment [A utomated message] The Eosinophils) system which ge nerated this result tra nsmitted reference range : <=4.0. The reference r marely was not used to int erpret this result as normal/abnormal . [facility] HospitalRpnftpgACDFQMHCOY3958-76-93 13:25:00 Test Item Value Reference Range Interpretation Comments Basophils (test code = 1.6 See_Comment [Aut omated message] The Basophils) system which ge nerated this result tra nsmitted reference range : <=1.0. The reference r marely was not used to int erpret this result as normal/abnormal . [facility] HospitalWyvztuoFZEKEJOMAU1707-85-99 13:25:00 Test Item Value Reference Range Interpretation Comments Monocytes (test code = Monocytes) 8.0 2.0-12.0 [facility] HospitalIrusjyyECVFOLGJBT2972-69-32 13:25:00 Test Item Value Reference Range Interpretation Comments Lymphocytes # (test code = Lymphocytes 2.3 1.0-5.5 #) [facility] HospitalIzbnfwkUAFVVQKLOP8244-75-48 13:25:00 Test Item Value Reference Range Interpretation Comments Segs-Bands # (test code = Segs-Bands #) 3.2 1.5-8.1 [facility] HospitalThomdeeTFEKYGITHS9404-39-01 13:25:00 Test Item Value Reference Range Interpretation Comments Lymphocytes (test code = Lymphocytes) 35.6 20.0-40.0 [facility] HospitalSxyocplUYFWXFHUDQ7850-67-00 13:25:00 Test Item Value Reference Range Interpretation Comments Segs (test code = Segs) 49.5 45.0-75.0 [facility] HospitalKnxhkocYTRKDYWLRI6583-34-85 13:25:00 Test Item Value Reference Range Interpretation Comments PT (test code = PT) 14.4 s 12.0-14.7 [facility] HospitalDysvnjpFYMGQFHEYF8784-03-77 13:25:00 Test Item Value Reference Range Interpretation Comments PTT (test code = PTT) 29.5 s 22.9-35.8 [facility] HospitalAblixanHIVAXKXQXD3327-62-58 13:25:00 Test Item Value Reference Range Interpretation Comments INR (test code = INR) 1.09 0.85-1.17 [facility] HospitalKtgusfqSONBNEDZUR1188-67-77 13:25:00 Test Item Value Reference Range Interpretation Comments MCH (test code = MCH) 28.5 pg 27.0-31.0 [facility] HospitalTcljiviXEAWNIWDQI3894-82-31 13:25:00 Test Item Value Reference Range Interpretation Comments MCV (test code = MCV) 86.6 80.0-94.0 [facility] HospitalElizklkVFNUXQAVTW6070-64-10 13:25:00 Test Item Value Reference Range Interpretation Comments RBC (test code = RBC) 4.37 4.70-6.10 [facility] HospitalQnmswbsUTFISXAHOW0941-57-68 13:25:00 Test Item Value Reference Range Interpretation Comments Hct (test code = Hct) 37.9 42.0-54.0 [facility] HospitalFvngosoLYAGDYRTAI2009-08-90 13:25:00 Test Item Value Reference Range Interpretation Comments Hgb (test code = Hgb) 12.5 14.0-18.0 [facility] HospitalJnroghgFNQEDJFNUX5731-77-32 13:25:00 Test Item Value Reference Range Interpretation Comments RDW (test code = RDW) 13.6 11.5-14.5 [facility] HospitalBrspfhpHHDTWLTEBY8705-95-17 13:25:00 Test Item Value Reference Range Interpretation Comments MCHC (test code = MCHC) 32.9 32.0-36.0 [facility] HospitalTvqdgzkOZLLFIEVLY6261-93-93 13:25:00 Test Item Value Reference Range Interpretation Comments MPV (test code = MPV) 9.4 7.4-10.4 [facility] HospitalNgwfojwCMBFBPESBP9534-11-42 13:25:00 Test Item Value Reference Range Interpretation Comments Platelet (test code = Platelet) 165 133-450 [facility] HospitalPyilyjtGGHEPMQXMX0345-20-75 13:25:00 Test Item Value Reference Range Interpretation Comments WBC (test code = WBC) 6.4 3.7-10.4 [facility]DR[facility] DOAPOZ2805-03-75 12:49:33 Test Item Value Reference Range Interpretation Comments U Benzodia Scr (test Negative *NA*(09/12/14 code = U Benzodia Scr) 7:49 AM) [facility]DR[facility] [id number] 12:49:33 Test Item Value Reference Range Interpretation Comments UDS Note (test code = See Note 7*NA*(09/12/14 UDS Note) 7:49 AM) [facility]DR[facility] XZBHBG1132-62-06 12:49:33 Test Item Value Reference Range Interpretation Comments U Phencyc Scr (test Negative *NA*(09/12/14 code = U Phencyc Scr) 7:49 AM) [facility] UGLVYR8057-67-68 12:49:33 Test Item Value Reference Range Interpretation Comments U Propoxyph Scr (test Negative *NA*(09/12/14 code = U Propoxyph Scr) 7:49 AM) [facility]annDR[facility] GTOLZC6714-14-36 12:49:33 Test Item Value Reference Range Interpretation Comments U Methadone Scr (test Negative *NA*(09/12/14 code = U Methadone Scr) 7:49 AM) [facility]annDR[facility] AKKXJI2612-33-48 12:49:33 Test Item Value Reference Range Interpretation Comments U Opiate Scr (test Negative *NA*(09/12/14 code = U Opiate Scr) 7:49 AM) [facility]annDR[facility] FMGJVE3953-71-00 12:49:33 Test Item Value Reference Range Interpretation Comments U Rebecca Scr (test code Negative *NA*(09/12/14 = U Rebecca Scr) 7:49 AM) [facility] [id number] 12:49:33 Test Item Value Reference Range Interpretation Comments U Amph Scr (test code Negative *NA*(09/12/14 = U Amph Scr) 7:49 AM) [facility]DR[facility] [id number] 12:49:33 Test Item Value Reference Range Interpretation Comments U Cocaine Scr (test Negative *NA*(09/12/14 code = U Cocaine Scr) 7:49 AM) [facility] [place] [id number] 12:49:33 Test Item Value Reference Range Interpretation Comments U Cannab Scr (test Negative *NA*(09/12/14 code = U Cannab Scr) 7:49 AM) [facility] [id number] 12:49:33 Test Item Value Reference Range Interpretation Comments U Benzodia Scr (test Negative *NA*(09/12/14 code = U Benzodia Scr) 7:49 AM) [facility] [id number] 12:49:33 Test Item Value Reference Range Interpretation Comments UDS Note (test code = See Note 7*NA*(09/12/14 UDS Note) 7:49 AM) [facility] [place] [id number] 12:49:33 Test Item Value Reference Range Interpretation Comments U Phencyc Scr (test Negative *NA*(09/12/14 code = U Phencyc Scr) 7:49 AM) [facility] [id number] 12:49:33 Test Item Value Reference Range Interpretation Comments U Propoxyph Scr (test Negative *NA*(09/12/14 code = U Propoxyph Scr) 7:49 AM) [facility] [id number] 12:49:33 Test Item Value Reference Range Interpretation Comments U Methadone Scr (test Negative *NA*(09/12/14 code = U Methadone Scr) 7:49 AM) [facility] [id number] 12:49:33 Test Item Value Reference Range Interpretation Comments U Opiate Scr (test Negative *NA*(09/12/14 code = U Opiate Scr) 7:49 AM) [facility] [place] [id number] 12:49:33 Test Item Value Reference Range Interpretation Comments U Rebecca Scr (test code Negative *NA*(09/12/14 = U Rebecca Scr) 7:49 AM) [facility] [place] [id number] 12:49:33 Test Item Value Reference Range Interpretation Comments U Amph Scr (test code Negative *NA*(09/12/14 = U Amph Scr) 7:49 AM) [facility] [place] [id number] 12:49:33 Test Item Value Reference Range Interpretation Comments U Cocaine Scr (test Negative *NA*(09/12/14 code = U Cocaine Scr) 7:49 AM) [facility] [place] [id number] 12:49:33 Test Item Value Reference Range Interpretation Comments U Cannab Scr (test Negative *NA*(09/12/14 code = U Cannab Scr) 7:49 AM) [facility] FanshoutCHEM [id number] 09:57:00 Test Item Value Reference Range Interpretation Comments Phosphorus (test code = Phosphorus) 3.6 2.5-4.5 [facility] [employer] [id number] 09:57:00 Test Item Value Reference Range Interpretation Comments Magnesium Lvl (test code = Magnesium 2.1 1.8-2.4 Lvl) [facility] [employer] [id number] 09:57:00 Test Item Value Reference Range Interpretation Comments eGFR (test code = eGFR) 60 [facility]2014-10-30 09:57:00 Test Item Value Reference Range Interpretation Comments Creatinine Lvl (test code = Creatinine 1.3 0.5-1.4 Lvl) [facility]2014-10-30 09:57:00 Test Item Value Reference Range Interpretation Comments Chloride Lvl (test code = Chloride Lvl) 107 95-109 [facility]2014-10-30 09:57:00 Test Item Value Reference Range Interpretation Comments CO2 (test code = CO2) 24 24-32 [facility]2014-10-30 09:57:00 Test Item Value Reference Range Interpretation Comments Sodium Lvl (test code = Sodium Lvl) 140 135-145 [facility]2014-10-30 09:57:00 Test Item Value Reference Range Interpretation Comments Potassium Lvl (test code = Potassium 4.1 3.5-5.1 Lvl) [facility]2014-10-30 09:57:00 Test Item Value Reference Range Interpretation Comments Calcium Lvl (test code = Calcium Lvl) 8.4 8.5-10.5 [facility]2014-10-30 09:57:00 Test Item Value Reference Range Interpretation Comments BUN (test code = BUN) 15 7-22 [facility]2014-10-30 09:57:00 Test Item Value Reference Range Interpretation Comments Glucose Lvl (test code = Glucose Lvl) 84 70-99 [facility]2014-10-30 09:57:00 Test Item Value Reference Range Interpretation Comments AGAP (test code = AGAP) 13.1 10.0-20.0 [facility] HospitalJvpdwbkBCXAMXXPSJ6279-07-76 09:57:00 Test Item Value Reference Range Interpretation Comments RDW (test code = RDW) 13.4 11.5-14.5 [facility] HospitalInqwuipAGSCUOCNMY4883-51-11 09:57:00 Test Item Value Reference Range Interpretation Comments MPV (test code = MPV) 9.9 7.4-10.4 [facility] HospitalIyyhsgfWBGKKVRWFF3101-10-40 09:57:00 Test Item Value Reference Range Interpretation Comments Platelet (test code = Platelet) 174 133-450 [facility] HospitalAxnxeweNVYAEDOXGY8035-36-50 09:57:00 Test Item Value Reference Range Interpretation Comments WBC (test code = WBC) 6.5 3.7-10.4 [facility] HospitalUnnsakzWWMDWZFTKL0612-02-83 09:57:00 Test Item Value Reference Range Interpretation Comments RBC (test code = RBC) 4.55 4.70-6.10 [facility] HospitalZvpioenCRSOAKBDBD3961-77-45 09:57:00 Test Item Value Reference Range Interpretation Comments Hgb (test code = Hgb) 13.6 14.0-18.0 [facility] HospitalInumtavHUKFLMVLXQ3734-35-96 09:57:00 Test Item Value Reference Range Interpretation Comments Hct (test code = Hct) 41.2 42.0-54.0 [facility] HospitalNsyeynvLUFNFXYQIF3117-70-71 09:57:00 Test Item Value Reference Range Interpretation Comments MCV (test code = MCV) 90.4 80.0-94.0 [facility] HospitalQjzjdzbUZYVCVXXWJ4795-66-58 09:57:00 Test Item Value Reference Range Interpretation Comments MCH (test code = MCH) 30.0 pg 27.0-31.0 [facility] HospitalJfqrqgbXAUEGYLBCN9071-19-29 09:57:00 Test Item Value Reference Range Interpretation Comments MCHC (test code = MCHC) 33.1 32.0-36.0 [facility] HospitalGjbfmpjGDXDNMZQAP9521-55-30 09:57:00 Test Item Value Reference Range Interpretation Comments Lymphocytes # (test code = Lymphocytes 2.3 1.0-5.5 #) [facility] HospitalZoekxazFTQPRLOVYM4889-19-05 09:57:00 Test Item Value Reference Range Interpretation Comments Monocytes # (test code 0.5 See_Comment [Aut omated message] The = Monocytes #) system which generated this result tra nsmitted reference range : <=0.8. The reference r marely was not used to int erpret this result as normal/abnormal . [facility] HospitalFvysevvCWWGTGSCET4417-77-93 09:57:00 Test Item Value Reference Range Interpretation Comments Eosinophils # (test code 0.5 See_Comment [A utomated message] The = Eosinophils #) system whic h generated this result tra nsmitted reference range : <=0.5. The reference r marely was not used to int erpret this result as normal/abnormal . [facility] HospitalNyvyynmWMISOBWBCA3587-95-30 09:57:00 Test Item Value Reference Range Interpretation Comments Basophils # (test code 0.1 See_Comment [Aut omated message] The = Basophils #) system which generated this result tra nsmitted reference range : <=0.2. The reference r marely was not used to int erpret this result as normal/abnormal . [facility] HospitalPoqhenySUTSWLTZDN2836-07-72 09:57:00 Test Item Value Reference Range Interpretation Comments Segs-Bands # (test code = Segs-Bands #) 3.0 1.5-8.1 [facility] HospitalAgeslclMAQKLRRLRG9963-54-92 09:57:00 Test Item Value Reference Range Interpretation Comments Monocytes (test code = Monocytes) 8.2 2.0-12.0 [facility] HospitalIicjokqFMLEKNPVCU8018-55-29 09:57:00 Test Item Value Reference Range Interpretation Comments Eosinophils (test code = 8.2 See_Comment [A utomated message] The Eosinophils) system which ge nerated this result tra nsmitted reference range : <=4.0. The reference r marely was not used to int erpret this result as normal/abnormal . [facility] HospitalGdoeocyUHOYODRAXI6824-63-62 09:57:00 Test Item Value Reference Range Interpretation Comments Basophils (test code = 1.9 See_Comment [Aut omated message] The Basophils) system which ge nerated this result tra nsmitted reference range : <=1.0. The reference r marely was not used to int erpret this result as normal/abnormal . [facility] HospitalIhqbqcqVCTLHYPGCK7691-22-04 09:57:00 Test Item Value Reference Range Interpretation Comments Segs (test code = Segs) 46.6 45.0-75.0 [facility] HospitalQrdowdiDXVMIBECQO0939-22-24 09:57:00 Test Item Value Reference Range Interpretation Comments Lymphocytes (test code = Lymphocytes) 35.1 20.0-40.0 [facility]enTjbuhpvESJMSPBUEH5724-62-98 09:57:00 Test Item Value Reference Range Interpretation Comments CRP, High Sensitivity (test code = CRP, 0.7 High Sensitivity) [facility]enLjbzfzgEICCHGQLLY5584-54-95 09:57:00 Test Item Value Reference Range Interpretation Comments RPR (test code = RPR) See Note 8(09/12/14 4:57 AM) [facility]enKrcaorkBZJZUUFEDM2981-12-87 09:57:00 Test Item Value Reference Range Interpretation Comments RPR (test code = RPR) Non Reactive (09/12/14 4:57 AM) [facility]2014-10-30 09:57:00 Test Item Value Reference Range Interpretation Comments Phosphorus (test code = Phosphorus) 3.6 2.5-4.5 [facility]2014-10-30 09:57:00 Test Item Value Reference Range Interpretation Comments Magnesium Lvl (test code = Magnesium 2.1 1.8-2.4 Lvl) [facility]2014-10-30 09:57:00 Test Item Value Reference Range Interpretation Comments eGFR (test code = eGFR) 60 [facility]2014-10-30 09:57:00 Test Item Value Reference Range Interpretation Comments Creatinine Lvl (test code = Creatinine 1.3 0.5-1.4 Lvl) [facility]2014-10-30 09:57:00 Test Item Value Reference Range Interpretation Comments Chloride Lvl (test code = Chloride Lvl) 107 95-109 [facility]2014-10-30 09:57:00 Test Item Value Reference Range Interpretation Comments CO2 (test code = CO2) 24 24-32 [facility]2014-10-30 09:57:00 Test Item Value Reference Range Interpretation Comments Sodium Lvl (test code = Sodium Lvl) 140 135-145 [facility]2014-10-30 09:57:00 Test Item Value Reference Range Interpretation Comments Potassium Lvl (test code = Potassium 4.1 3.5-5.1 Lvl) [facility]2014-10-30 09:57:00 Test Item Value Reference Range Interpretation Comments Calcium Lvl (test code = Calcium Lvl) 8.4 8.5-10.5 [facility]2014-10-30 09:57:00 Test Item Value Reference Range Interpretation Comments BUN (test code = BUN) 15 7-22 [facility]2014-10-30 09:57:00 Test Item Value Reference Range Interpretation Comments Glucose Lvl (test code = Glucose Lvl) 84 70-99 [facility]2014-10-30 09:57:00 Test Item Value Reference Range Interpretation Comments AGAP (test code = AGAP) 13.1 10.0-20.0 [facility]JKWBHBILLT9356-13-02 09:57:00 Test Item Value Reference Range Interpretation Comments RDW (test code = RDW) 13.4 11.5-14.5 [facility] HospitalRnrurydXFNXBXXSDQ0204-59-91 09:57:00 Test Item Value Reference Range Interpretation Comments MPV (test code = MPV) 9.9 7.4-10.4 [facility] HospitalXlhvtlbEKZXXOHBQD3962-77-71 09:57:00 Test Item Value Reference Range Interpretation Comments Platelet (test code = Platelet) 174 133-450 [facility] HospitalVxickxbWWSQSBRJSK2116-11-29 09:57:00 Test Item Value Reference Range Interpretation Comments WBC (test code = WBC) 6.5 3.7-10.4 [facility] HospitalVrvisxaGBLXULXPSN8153-01-48 09:57:00 Test Item Value Reference Range Interpretation Comments RBC (test code = RBC) 4.55 4.70-6.10 [facility] HospitalGbjxjqnWZSRBWGDVF4299-59-36 09:57:00 Test Item Value Reference Range Interpretation Comments Hgb (test code = Hgb) 13.6 14.0-18.0 [facility] HospitalSxewchxVOAFQJUOAL7693-31-52 09:57:00 Test Item Value Reference Range Interpretation Comments Hct (test code = Hct) 41.2 42.0-54.0 [facility] HospitalSahdbcjKOWVVXBWMB7580-88-23 09:57:00 Test Item Value Reference Range Interpretation Comments MCV (test code = MCV) 90.4 80.0-94.0 [facility] HospitalEhsofaiCLUIIOHRQC5338-92-92 09:57:00 Test Item Value Reference Range Interpretation Comments MCH (test code = MCH) 30.0 pg 27.0-31.0 [facility] HospitalWhcxapjBNUDROEZVM8691-58-74 09:57:00 Test Item Value Reference Range Interpretation Comments MCHC (test code = MCHC) 33.1 32.0-36.0 [facility] HospitalZtziexgNHMFERBWIW4829-15-82 09:57:00 Test Item Value Reference Range Interpretation Comments Lymphocytes # (test code = Lymphocytes 2.3 1.0-5.5 #) [facility] HospitalIndhkvzSRHBAONFKN5819-81-49 09:57:00 Test Item Value Reference Range Interpretation Comments Monocytes # (test code 0.5 See_Comment [Aut omated message] The = Monocytes #) system which generated this result tra nsmitted reference range : <=0.8. The reference r marely was not used to int erpret this result as normal/abnormal . [facility] HospitalDirkdpjNSZRSOZPDL0443-06-91 09:57:00 Test Item Value Reference Range Interpretation Comments Eosinophils # (test code 0.5 See_Comment [A utomated message] The = Eosinophils #) system whic h generated this result tra nsmitted reference range : <=0.5. The reference r marely was not used to int erpret this result as normal/abnormal . [facility] HospitalQycqyqcMRXPYDJKBV9367-37-58 09:57:00 Test Item Value Reference Range Interpretation Comments Basophils # (test code 0.1 See_Comment [Aut omated message] The = Basophils #) system which generated this result tra nsmitted reference range : <=0.2. The reference r marely was not used to int erpret this result as normal/abnormal . [facility] HospitalTzcttvnFRQHJUOXVK8758-59-11 09:57:00 Test Item Value Reference Range Interpretation Comments Segs-Bands # (test code = Segs-Bands #) 3.0 1.5-8.1 [facility] HospitalAwbrupmTSRCARSTNE8786-98-03 09:57:00 Test Item Value Reference Range Interpretation Comments Monocytes (test code = Monocytes) 8.2 2.0-12.0 [facility] HospitalYphxbziONKCQRYEJH2673-03-45 09:57:00 Test Item Value Reference Range Interpretation Comments Eosinophils (test code = 8.2 See_Comment [A utomated message] The Eosinophils) system which ge nerated this result tra nsmitted reference range : <=4.0. The reference r marely was not used to int erpret this result as normal/abnormal . [facility] HospitalDgsvobqRJZNQMSHMY2115-99-81 09:57:00 Test Item Value Reference Range Interpretation Comments Basophils (test code = 1.9 See_Comment [Aut omated message] The Basophils) system which ge nerated this result tra nsmitted reference range : <=1.0. The reference r marely was not used to int erpret this result as normal/abnormal . [facility] HospitalSmlbitmQXTCPJKPPW7508-09-33 09:57:00 Test Item Value Reference Range Interpretation Comments Segs (test code = Segs) 46.6 45.0-75.0 [facility] HospitalKgqddaqHVFXDBTBAE0241-53-71 09:57:00 Test Item Value Reference Range Interpretation Comments Lymphocytes (test code = Lymphocytes) 35.1 20.0-40.0 [facility]NgezemfVKBEMJXREB7405-46-46 09:57:00 Test Item Value Reference Range Interpretation Comments CRP, High Sensitivity (test code = CRP, 0.7 High Sensitivity) [facility] HospitalXfnlslgHSIKGEGCJC4157-57-08 09:57:00 Test Item Value Reference Range Interpretation Comments RPR (test code = RPR) See Note 8(09/12/14 4:57 AM) [facility] TylerPscgbwfTAZKLBVFEG5528-46-60 09:57:00 Test Item Value Reference Range Interpretation Comments RPR (test code = RPR) Non Reactive (09/12/14 4:57 AM) [facility] Tyler[facility]Edge2014-10-29 13:09:00 Test Item Value Reference Range Interpretation Comments Troponin-T (test code no gt See_Comment [Auto mated message] The = Troponin-T) system which g enerated this result transmit rolly reference range : <=0.100. The reference r marely was not used to interpr et this result as dale l/abnormal. [facility] Tyler[facility]2014-[facility] 13:09:00 Test Item Value Reference Range Interpretation Comments Troponin-I (test code no gt See_Comment [Auto mated message] The = Troponin-I) system which g enerated this result transmit rolly reference range : <=0.40. The reference r marely was not used to interpr et this result as dale l/abnormal. [facility] Tyler[facility]2014-[facility] 13:09:00 Test Item Value Reference Range Interpretation Comments Total CK (test code = Total CK) 115 12-191 [facility] Tyler[facility]Edge2014-10-29 13:09:00 Test Item Value Reference Range Interpretation Comments CK MB Index (test 1.1 See_Comment [Automate d message] The code = CK MB Index) system w [facility] generated this result transmit rolly reference range : <=2.5. The reference range was not used to interpr et this result as dale l/abnormal. [facility]2014-10-29 13:09:00 Test Item Value Reference Range Interpretation Comments CK MB (test code = CK MB) 1.3 0.5-3.6 [facility] Tyler[facility]2014-10-29 13:09:00 Test Item Value Reference Range Interpretation Comments Troponin-T (test code no gt See_Comment [Auto mated message] The = Troponin-T) system which g enerated this result transmit rolly reference range : <=0.100. The reference r marely was not used to interpr et this result as dale l/abnormal. [employer]2014-10-29 13:09:00 Test Item Value Reference Range Interpretation Comments Troponin-I (test code no gt See_Comment [Auto mated message] The = Troponin-I) system which g enerated this result transmit rolly reference range : <=0.40. The reference r marely was not used to interpr et this result as dale l/abnormal. [employer]2014-10-29 13:09:00 Test Item Value Reference Range Interpretation Comments Total CK (test code = Total CK) 115 12-191 [facility]2014-10-29 13:09:00 Test Item Value Reference Range Interpretation Comments CK MB Index (test 1.1 See_Comment [Automate d message] The code = CK MB Index) system w [facility] generated this result transmit rolly reference range : <=2.5. The reference range was not used to interpr et this result as dale l/abnormal. [facility]2014-10-29 13:09:00 Test Item Value Reference Range Interpretation Comments CK MB (test code = CK MB) 1.3 0.5-3.6 [facility]2014-10-29 07:10:00 Test Item Value Reference Range Interpretation Comments Troponin-T (test code no gt See_Comment [Auto mated message] The = Troponin-T) system which g enerated this result transmit rolly reference range : <=0.100. The reference r marely was not used to interpr et this result as dale l/abnormal. [employer]2014-10-29 07:10:00 Test Item Value Reference Range Interpretation Comments Troponin-I (test code no gt See_Comment [Auto mated message] The = Troponin-I) system which g enerated this result transmit rolly reference range : <=0.40. The reference r marely was not used to interpr et this result as dale l/abnormal. [employer]2014-10-29 07:10:00 Test Item Value Reference Range Interpretation Comments Total CK (test code = Total CK) 122 12-191 [facility]annCARDIAC MTZRTQU5586-35-25 07:10:00 Test Item Value Reference Range Interpretation Comments CK MB (test code = CK MB) 1.3 0.5-3.6 [facility] TylerannCARDIAC VCEIEYO3664-30-03 07:10:00 Test Item Value Reference Range Interpretation Comments CK MB Index (test 1.1 See_Comment [Automate d message] The code = CK MB Index) [facility] generated this result transmit rolly reference range : <=2.5. The reference range was not used to interpr et this result as dale l/abnormal. [facility] WDURH8511-85-28 07:10:00 Test Item Value Reference Range Interpretation Comments Magnesium Lvl (test code = Magnesium 2.1 1.8-2.4 Lvl) [facility] TylerImag[facility] YHVRC1918-67-55 07:10:00 Test Item Value Reference Range Interpretation Comments Phosphorus (test code = Phosphorus) 4.3 2.5-4.5 [facility] TylerBcbasyvEFLADYUVMURW2776-35-35 07:10:00 Test Item Value Reference Range Interpretation Comments AGAP (test code = AGAP) 12.8 10.0-20.0 [facility] TylerFrlilvyMLZKBUFMTJEV7025-77-40 07:10:00 Test Item Value Reference Range Interpretation Comments eGFR (test code = eGFR) 66 [facility] HospitalItjisioMAARSCQUEPOA8572-21-38 07:10:00 Test Item Value Reference Range Interpretation Comments Potassium Lvl (test code = Potassium 3.8 3.5-5.1 Lvl) [facility] TylerIannysuONFEJLGBHIOI2780-87-46 07:10:00 Test Item Value Reference Range Interpretation Comments Calcium Lvl (test code = Calcium Lvl) 8.5 8.5-10.5 [facility] TylerSyldufeSYUBHPIIUAYZ9577-05-02 07:10:00 Test Item Value Reference Range Interpretation Comments CO2 (test code = CO2) 27 24-32 [facility] TylerJzhyialBZCLOCMILLLI7996-81-45 07:10:00 Test Item Value Reference Range Interpretation Comments Chloride Lvl (test code = Chloride Lvl) 106 95-109 [facility] TylerBkqfbsxYNNUIERIRWPJ2105-32-65 07:10:00 Test Item Value Reference Range Interpretation Comments Creatinine Lvl (test code = Creatinine 1.2 0.5-1.4 Lvl) [facility]HigxopyGQHOVOYGIWTA0886-46-94 07:10:00 Test Item Value Reference Range Interpretation Comments BUN (test code = BUN) 14 7-22 [facility] HospitalFmizbkvRNQRLVXFTGTG3010-81-95 07:10:00 Test Item Value Reference Range Interpretation Comments Glucose Lvl (test code = Glucose Lvl) 105 70-99 [facility] HospitalUufzvrtNBDVHOLLFTRS5106-96-86 07:10:00 Test Item Value Reference Range Interpretation Comments Sodium Lvl (test code = Sodium Lvl) 142 135-145 [facility] HospitalQxlxuspKMCNWNEASE0028-47-13 07:10:00 Test Item Value Reference Range Interpretation Comments PTT (test code = PTT) 29.3 s 22.9-35.8 [facility] HospitalDyzxztgAJFURFTSQM7475-15-18 07:10:00 Test Item Value Reference Range Interpretation Comments PT (test code = PT) 13.5 s 12.0-14.7 [facility] HospitalUfglijvYERXRTKCPD4531-63-81 07:10:00 Test Item Value Reference Range Interpretation Comments INR (test code = INR) 1.03 0.85-1.17 [facility] HospitalTghripeCMRGKCKCBD8925-50-48 07:10:00 Test Item Value Reference Range Interpretation Comments RBC (test code = RBC) 4.19 4.70-6.10 [facility] HospitalGmdoqqbYBJIICQNEL0753-61-51 07:10:00 Test Item Value Reference Range Interpretation Comments Hgb (test code = Hgb) 12.9 14.0-18.0 [facility] HospitalSrowabxRMZOREUDCS9041-36-28 07:10:00 Test Item Value Reference Range Interpretation Comments MCV (test code = MCV) 89.1 80.0-94.0 [facility] HospitalItjlqkxOIIYAUBTQT8231-41-12 07:10:00 Test Item Value Reference Range Interpretation Comments Hct (test code = Hct) 37.3 42.0-54.0 [facility] HospitalEvmzgewXRLBFCFFRB1770-12-48 07:10:00 Test Item Value Reference Range Interpretation Comments MCH (test code = MCH) 30.8 pg 27.0-31.0 [facility] HospitalFluycfhPSCISKGSNU9121-13-87 07:10:00 Test Item Value Reference Range Interpretation Comments RDW (test code = RDW) 13.1 11.5-14.5 [facility] HospitalQikjyreNZWBVMUQAP5359-20-72 07:10:00 Test Item Value Reference Range Interpretation Comments MCHC (test code = MCHC) 34.6 32.0-36.0 [facility] HospitalOnajgjgBFBCCMSEFJ9907-73-38 07:10:00 Test Item Value Reference Range Interpretation Comments Platelet (test code = Platelet) 148 133-450 [facility] HospitalCshhdebHVALXPCCNZ2000-27-87 07:10:00 Test Item Value Reference Range Interpretation Comments MPV (test code = MPV) 9.5 7.4-10.4 [facility] [facility]MD3044[facility]00 Test Item Value Reference Range Interpretation Comments WBC (test code = WBC) 5.3 3.7-10.4 [facility] HospitalVvpjvjbEPRMEKWAGP1757-88-36 07:10:00 Test Item Value Reference Range Interpretation Comments Basophils # (test code 0.1 See_Comment [Aut omated message] The = Basophils #) system which generated this result tra nsmitted reference range : <=0.2. The reference r marely was not used to int erpret this result as normal/abnormal . [facility] HospitalKxubrnzYJAFYYZZDI1503-59-31 07:10:00 Test Item Value Reference Range Interpretation Comments Lymphocytes (test code = Lymphocytes) 39.9 20.0-40.0 [facility] HospitalHnelctxMKGQTLXXWT1426-04-03 07:10:00 Test Item Value Reference Range Interpretation Comments Eosinophils (test code = 7.3 See_Comment [A utomated message] The Eosinophils) system which ge nerated this result tra nsmitted reference range : <=4.0. The reference r marely was not used to int erpret this result as normal/abnormal . [facility] HospitalZjztwewLWEYSNIKZQ4196-91-38 07:10:00 Test Item Value Reference Range Interpretation Comments Monocytes (test code = Monocytes) 7.9 2.0-12.0 [facility] HospitalHyzefhwGFTXHMALZB8819-66-67 07:10:00 Test Item Value Reference Range Interpretation Comments Segs (test code = Segs) 42.7 45.0-75.0 [facility] HospitalMaoaupwLTIRUVOJMF6596-95-38 07:10:00 Test Item Value Reference Range Interpretation Comments Lymphocytes # (test code = Lymphocytes 2.1 1.0-5.5 #) [facility] HospitalUqrlgnrMGSDVKSAJT2918-66-41 07:10:00 Test Item Value Reference Range Interpretation Comments Segs-Bands # (test code = Segs-Bands #) 2.3 1.5-8.1 [facility] HospitalOkwpiabHTVOJOEMFO6600-54-73 07:10:00 Test Item Value Reference Range Interpretation Comments Basophils (test code = 2.2 See_Comment [Aut omated message] The Basophils) system which ge nerated this result tra nsmitted reference range : <=1.0. The reference r marely was not used to int erpret this result as normal/abnormal . [facility] HospitalTujfwviJHWVMWFLEX6926-54-00 07:10:00 Test Item Value Reference Range Interpretation Comments Monocytes # (test code 0.4 See_Comment [Aut omated message] The = Monocytes #) system which generated this result tra nsmitted reference range : <=0.8. The reference r marely was not used to int erpret this result as normal/abnormal . [facility] HospitalZvvmtqfCWTMFMHXNA9798-38-95 07:10:00 Test Item Value Reference Range Interpretation Comments Eosinophils # (test code 0.4 See_Comment [A utomated message] The = Eosinophils #) system whic h generated this result tra nsmitted reference range : <=0.5. The reference r marely was not used to int erpret this result as normal/abnormal . [facility]MntloouAITQNZ7056-33-70 07:10:00 Test Item Value Reference Range Interpretation Comments VLDL (test code = VLDL) 35 [facility] HospitalXpoyskrJCPYCY4191-69-27 07:10:00 Test Item Value Reference Range Interpretation Comments Trig (test code = Trig) 173 [facility]Xs[facility]bdoNXYISO7121-20-67 07:10:00 Test Item Value Reference Range Interpretation Comments LDL (Calculated) (test code = LDL 21 (Calculated)) [facility] HospitalNsnojphTMFIZX0113-15-86 07:10:00 Test Item Value Reference Range Interpretation Comments Chol (test code = Chol) 97 [facility] HospitalCnugibsMXWPBE3729-45-25 07:10:00 Test Item Value Reference Range Interpretation Comments HDL (test code = HDL) 41 [facility] HospitalZjnzuqpIRZZQG6016-05-46 07:10:00 Test Item Value Reference Range Interpretation Comments CHD Risk (test code = CHD Risk) 2.37 4.00-7.30 [facility] APFVYFPIZ1035-04-94 07:10:00 Test Item Value Reference Range Interpretation Comments Hgb A1C (test code = Hgb A1C) 6.0 [facility] [employer]ou[employer]AC JROJWRT5863-08-17 07:10:00 Test Item Value Reference Range Interpretation Comments Troponin-T (test code no gt See_Comment [Auto mated message] The = Troponin-T) system which g enerated this result transmit rolly reference range : <=0.100. The reference r marely was not used to interpr et this result as dale l/abnormal. [facility]2014-10-29 07:10:00 Test Item Value Reference Range Interpretation Comments Troponin-I (test code no gt See_Comment [Auto mated message] The = Troponin-I) system which g enerated this result transmit rolly reference range : <=0.40. The reference r marely was not used to interpr et this result as dale l/abnormal. [facility]2014-10-29 07:10:00 Test Item Value Reference Range Interpretation Comments Total CK (test code = Total CK) 122 12-191 [facility]2014-10-29 07:10:00 Test Item Value Reference Range Interpretation Comments CK MB (test code = CK MB) 1.3 0.5-3.6 [facility]2014-10-29 07:10:00 Test Item Value Reference Range Interpretation Comments CK MB Index (test 1.1 See_Comment [Automate d message] The code = CK MB Index) system w [facility] generated this result transmit rolly reference range : <=2.5. The reference range was not used to interpr et this result as dale l/abnormal. [employer] ARLDN7881-78-47 07:10:00 Test Item Value Reference Range Interpretation Comments Magnesium Lvl (test code = Magnesium 2.1 1.8-2.4 Lvl) [facility] [employer] GYYNA2761-07-27 07:10:00 Test Item Value Reference Range Interpretation Comments Phosphorus (test code = Phosphorus) 4.3 2.5-4.5 [facility] TuwwputMTLUNPPNHLUM9401-32-64 07:10:00 Test Item Value Reference Range Interpretation Comments AGAP (test code = AGAP) 12.8 10.0-20.0 [facility] JnsbqzxVPAGUYRGRLWD2818-66-21 07:10:00 Test Item Value Reference Range Interpretation Comments eGFR (test code = eGFR) 66 [facility]CjljjddTFCPPJIQYNWX6725-93-03 07:10:00 Test Item Value Reference Range Interpretation Comments Potassium Lvl (test code = Potassium 3.8 3.5-5.1 Lvl) [facility] HospitalZdovefhSHYZNUSARJZR8636-80-35 07:10:00 Test Item Value Reference Range Interpretation Comments Calcium Lvl (test code = Calcium Lvl) 8.5 8.5-10.5 [facility] HospitalSscpyguZNBOVNBMEKAA0848-64-36 07:10:00 Test Item Value Reference Range Interpretation Comments CO2 (test code = CO2) 27 24-32 [facility] HospitalXvzpvokGAKTHLUAGLPM3098-24-43 07:10:00 Test Item Value Reference Range Interpretation Comments Chloride Lvl (test code = Chloride Lvl) 106 95-109 [facility] HospitalDbbcaqtFMTUGVQXTTJO7414-84-57 07:10:00 Test Item Value Reference Range Interpretation Comments Creatinine Lvl (test code = Creatinine 1.2 0.5-1.4 Lvl) [facility] HospitalQbejbymZEQQHYKZFKAP2685-83-38 07:10:00 Test Item Value Reference Range Interpretation Comments BUN (test code = BUN) 14 7-22 [facility] HospitalVpmtrwaNKUFSCNIOQRC8048-56-42 07:10:00 Test Item Value Reference Range Interpretation Comments Glucose Lvl (test code = Glucose Lvl) 105 70-99 [facility] HospitalZldbpfuIQMSIPDZJWEV5804-11-35 07:10:00 Test Item Value Reference Range Interpretation Comments Sodium Lvl (test code = Sodium Lvl) 142 135-145 [facility] HospitalMpcrrcaXTHZKQCHJO6752-71-14 07:10:00 Test Item Value Reference Range Interpretation Comments PTT (test code = PTT) 29.3 s 22.9-35.8 [facility] HospitalKfpasifBXMDICDFRA2011-17-64 07:10:00 Test Item Value Reference Range Interpretation Comments PT (test code = PT) 13.5 s 12.0-14.7 [facility] HospitalCsgluvoBWCJSLGBUI2130-53-91 07:10:00 Test Item Value Reference Range Interpretation Comments INR (test code = INR) 1.03 0.85-1.17 [facility] HospitalGtwufazGLWYMPTSVE5734-91-34 07:10:00 Test Item Value Reference Range Interpretation Comments RBC (test code = RBC) 4.19 4.70-6.10 [facility] HospitalHdqxktyDLWHRNUTUX6954-99-07 07:10:00 Test Item Value Reference Range Interpretation Comments Hgb (test code = Hgb) 12.9 14.0-18.0 [facility] HospitalEslyugpMOSMTHWPCJ4354-74-74 07:10:00 Test Item Value Reference Range Interpretation Comments MCV (test code = MCV) 89.1 80.0-94.0 [facility] HospitalUolixgwRJDKHFUUGT5260-14-01 07:10:00 Test Item Value Reference Range Interpretation Comments Hct (test code = Hct) 37.3 42.0-54.0 [facility] HospitalCuohhueZYOZERHTAJ4802-20-50 07:10:00 Test Item Value Reference Range Interpretation Comments MCH (test code = MCH) 30.8 pg 27.0-31.0 [facility] HospitalRwwkoouLLENGZZJXM2204-19-91 07:10:00 Test Item Value Reference Range Interpretation Comments RDW (test code = RDW) 13.1 11.5-14.5 [facility] HospitalXmvnaarIWOYRVOXIK9018-89-79 07:10:00 Test Item Value Reference Range Interpretation Comments MCHC (test code = MCHC) 34.6 32.0-36.0 [facility] HospitalJjawpogIIXMESCKEV4987-00-47 07:10:00 Test Item Value Reference Range Interpretation Comments Platelet (test code = Platelet) 148 133-450 [facility] HospitalUdigfxpPULSPSWZGP5300-19-29 07:10:00 Test Item Value Reference Range Interpretation Comments MPV (test code = MPV) 9.5 7.4-10.4 [facility] HospitalXhufhsaFFOTTEJFFV5938-01-38 07:10:00 Test Item Value Reference Range Interpretation Comments WBC (test code = WBC) 5.3 3.7-10.4 [facility] HospitalAgfjymiVDCVFOFYEV2548-71-41 07:10:00 Test Item Value Reference Range Interpretation Comments Basophils # (test code 0.1 See_Comment [Aut omated message] The = Basophils #) system which generated this result tra nsmitted reference range : <=0.2. The reference r marely was not used to int erpret this result as normal/abnormal . [facility] HospitalBdqwfulCOQKSHOLZX0792-72-98 07:10:00 Test Item Value Reference Range Interpretation Comments Lymphocytes (test code = Lymphocytes) 39.9 20.0-40.0 [facility] HospitalJdgkyqeUDYBGSISKG2208-85-35 07:10:00 Test Item Value Reference Range Interpretation Comments Eosinophils (test code = 7.3 See_Comment [A utomated message] The Eosinophils) system which ge nerated this result tra nsmitted reference range : <=4.0. The reference r marely was not used to int erpret this result as normal/abnormal . [facility] HospitalGebeqwtBJAKIDVUHG4219-10-72 07:10:00 Test Item Value Reference Range Interpretation Comments Monocytes (test code = Monocytes) 7.9 2.0-12.0 [facility] HospitalWfwnkfcQPGAWKDMTF0612-25-42 07:10:00 Test Item Value Reference Range Interpretation Comments Segs (test code = Segs) 42.7 45.0-75.0 [facility] HospitalZuwjwfgCVQYLIHBCF6405-46-80 07:10:00 Test Item Value Reference Range Interpretation Comments Lymphocytes # (test code = Lymphocytes 2.1 1.0-5.5 #) [facility] HospitalFeijlqnBYCANJECXL4789-68-34 07:10:00 Test Item Value Reference Range Interpretation Comments Segs-Bands # (test code = Segs-Bands #) 2.3 1.5-8.1 [facility] HospitalWqyxflbDSSDYJKMLK6048-90-18 07:10:00 Test Item Value Reference Range Interpretation Comments Basophils (test code = 2.2 See_Comment [Aut omated message] The Basophils) system which ge nerated this result tra nsmitted reference range : <=1.0. The reference r marely was not used to int erpret this result as normal/abnormal . [facility] HospitalFmalxydXZNKXOTUNZ8259-43-52 07:10:00 Test Item Value Reference Range Interpretation Comments Monocytes # (test code 0.4 See_Comment [Aut omated message] The = Monocytes #) system which generated this result tra nsmitted reference range : <=0.8. The reference r marely was not used to int erpret this result as normal/abnormal . [facility] HospitalKuchcvdLYPBSRBNNV0803-28-34 07:10:00 Test Item Value Reference Range Interpretation Comments Eosinophils # (test code 0.4 See_Comment [A utomated message] The = Eosinophils #) system whic h generated this result tra nsmitted reference range : <=0.5. The reference r marely was not used to int erpret this result as normal/abnormal . [facility]AefiwotGFVJGB1124-33-72 07:10:00 Test Item Value Reference Range Interpretation Comments VLDL (test code = VLDL) 35 [facility] TylerCohquviXEIBZR8939-54-47 07:10:00 Test Item Value Reference Range Interpretation Comments Trig (test code = Trig) 173 [facility]YpccqjhUBFKTR8099-65-36 07:10:00 Test Item Value Reference Range Interpretation Comments LDL (Calculated) (test code = LDL 21 (Calculated)) [facility] HospitalVeeopfvYVFFWL7139-13-29 07:10:00 Test Item Value Reference Range Interpretation Comments Chol (test code = Chol) 97 [facility] TylerUihnkszODFSBE0827-15-13 07:10:00 Test Item Value Reference Range Interpretation Comments HDL (test code = HDL) 41 [facility] TylerIctewnrAHZXCH2387-72-20 07:10:00 Test Item Value Reference Range Interpretation Comments CHD Risk (test code = CHD Risk) 2.37 4.00-7.30 [facility] MQYPGNHEV1269-59-13 07:10:00 Test Item Value Reference Range Interpretation Comments Hgb A1C (test code = Hgb A1C) 6.0 [facility] TylerannCARDIAC TWWQMVG6944-81-58 18:49:00 Test Item Value Reference Range Interpretation Comments CK MB Index (test 0.8 See_Comment [Automate d message] The code = CK MB Index) system w [facility] generated this result transmit rolly reference range : <=2.5. The reference range was not used to interpr et this result as dale l/abnormal. [facility] Tyler[facility]CARD[facility] LJDVJKI3132-14-89 18:49:00 Test Item Value Reference Range Interpretation Comments Troponin-I (test code no gt See_Comment [Auto mated message] The = Troponin-I) system which g enerated this result transmit rolly reference range : <=0.40. The reference r marely was not used to interpr et this result as dale l/abnormal. [facility]CARD[facility] DOKMWQD5636-60-16 18:49:00 Test Item Value Reference Range Interpretation Comments CK MB (test code = CK MB) 1.3 0.5-3.6 [facility]annCARD[facility] RATFHCS7798-95-18 18:49:00 Test Item Value Reference Range Interpretation Comments Total CK (test code = Total CK) 155 12-191 [facility] TylerVital Herd IncCHEM DQJIO0366-99-41 18:49:00 Test Item Value Reference Range Interpretation Comments eGFR (test code = eGFR) 66 [facility]2014-10-28 18:49:00 Test Item Value Reference Range Interpretation Comments Glucose Lvl (test code = Glucose Lvl) 93 70-99 [facility]2014-10-28 18:49:00 Test Item Value Reference Range Interpretation Comments BUN (test code = BUN) 14 7-22 [facility]2014-10-28 18:49:00 Test Item Value Reference Range Interpretation Comments Creatinine Lvl (test code = Creatinine 1.2 0.5-1.4 Lvl) [facility]2014-10-28 18:49:00 Test Item Value Reference Range Interpretation Comments Sodium Lvl (test code = Sodium Lvl) 141 135-145 [facility]2014-10-28 18:49:00 Test Item Value Reference Range Interpretation Comments Potassium Lvl (test code = Potassium 4.2 3.5-5.1 Lvl) [facility]2014-10-28 18:49:00 Test Item Value Reference Range Interpretation Comments CO2 (test code = CO2) 26 24-32 [facility]2014-10-28 18:49:00 Test Item Value Reference Range Interpretation Comments Chloride Lvl (test code = Chloride Lvl) 107 95-109 [facility]2014-10-28 18:49:00 Test Item Value Reference Range Interpretation Comments Calcium Lvl (test code = Calcium Lvl) 8.8 8.5-10.5 [facility]2014-10-28 18:49:00 Test Item Value Reference Range Interpretation Comments AGAP (test code = AGAP) 12.2 10.0-20.0 [facility] HospitalYkkrtmsVDOXSLQPCC3488-93-23 18:49:00 Test Item Value Reference Range Interpretation Comments Monocytes (test code = Monocytes) 7.5 2.0-12.0 [facility] HospitalOgrubkzEPLMRCWPKG1451-48-37 18:49:00 Test Item Value Reference Range Interpretation Comments Eosinophils (test code = 9.1 See_Comment [A utomated message] The Eosinophils) system which ge nerated this result tra nsmitted reference range : <=4.0. The reference r marely was not used to int erpret this result as normal/abnormal . [facility] HospitalSsdkhniIINQADVHDB7960-02-23 18:49:00 Test Item Value Reference Range Interpretation Comments Lymphocytes # (test code = Lymphocytes 1.9 1.0-5.5 #) [facility] HospitalQqrrmsnLVBUZVNVWB5764-16-51 18:49:00 Test Item Value Reference Range Interpretation Comments Segs (test code = Segs) 43.6 45.0-75.0 [facility] HospitalWojkfmjQLTZFJDGZG2812-81-83 18:49:00 Test Item Value Reference Range Interpretation Comments Lymphocytes (test code = Lymphocytes) 39.5 20.0-40.0 [facility] HospitalTbkjeqxXWRGQVDOBL4362-27-40 18:49:00 Test Item Value Reference Range Interpretation Comments Eosinophils # (test code 0.4 See_Comment [A utomated message] The = Eosinophils #) system whic h generated this result tra nsmitted reference range : <=0.5. The reference r marely was not used to int erpret this result as normal/abnormal . [facility] HospitalFkiqyluAHVOQHBESP0533-21-77 18:49:00 Test Item Value Reference Range Interpretation Comments Basophils # (test code 0.0 See_Comment [Aut omated message] The = Basophils #) system which generated this result tra nsmitted reference range : <=0.2. The reference r marely was not used to int erpret this result as normal/abnormal . [facility] HospitalQpowrbtQCWGNHJTVP5317-59-17 18:49:00 Test Item Value Reference Range Interpretation Comments Monocytes # (test code 0.4 See_Comment [Aut omated message] The = Monocytes #) system which generated this result tra nsmitted reference range : <=0.8. The reference r marely was not used to int erpret this result as normal/abnormal . [facility] HospitalXnbvbpjRMTCHTMQXE3888-45-81 18:49:00 Test Item Value Reference Range Interpretation Comments Basophils (test code = 0.3 See_Comment [Aut omated message] The Basophils) system which ge nerated this result tra nsmitted reference range : <=1.0. The reference r marely was not used to int erpret this result as normal/abnormal . [facility] HospitalBdcnywnYZGBIDOJLP7171-92-46 18:49:00 Test Item Value Reference Range Interpretation Comments Segs-Bands # (test code = Segs-Bands #) 2.1 1.5-8.1 [facility] HospitalGebpcvlXAEABAUGHE3677-40-36 18:49:00 Test Item Value Reference Range Interpretation Comments PT (test code = PT) 12.9 s 12.0-14.7 [facility] HospitalQjbgqxgGAXESIJWAG9643-15-22 18:49:00 Test Item Value Reference Range Interpretation Comments INR (test code = INR) 0.97 0.85-1.17 [facility] HospitalLelyxauJTOJXVHFQQ3701-29-92 18:49:00 Test Item Value Reference Range Interpretation Comments MCHC (test code = MCHC) 34.6 32.0-36.0 [facility] HospitalOebbcisXKLNFILWOK8962-51-51 18:49:00 Test Item Value Reference Range Interpretation Comments MPV (test code = MPV) 9.0 7.4-10.4 [facility] HospitalDkfqmxpCUNSFMBXYH6394-86-84 18:49:00 Test Item Value Reference Range Interpretation Comments RDW (test code = RDW) 12.6 11.5-14.5 [facility] HospitalCaalknmYTTCQPMVIW1024-47-60 18:49:00 Test Item Value Reference Range Interpretation Comments Platelet (test code = Platelet) 155 133-450 [facility] HospitalEjscaclPQCVKCMCJM3939-41-45 18:49:00 Test Item Value Reference Range Interpretation Comments MCH (test code = MCH) 30.3 pg 27.0-31.0 [facility] HospitalNfhczdcQGHZZPONNB6404-77-37 18:49:00 Test Item Value Reference Range Interpretation Comments Hgb (test code = Hgb) 13.3 14.0-18.0 [facility] HospitalQflsikcQLYDBPFGOB0388-39-86 18:49:00 Test Item Value Reference Range Interpretation Comments WBC (test code = WBC) 4.8 3.7-10.4 [facility] HospitalUxzigluBQSLKHVIJX2731-94-95 18:49:00 Test Item Value Reference Range Interpretation Comments RBC (test code = RBC) 4.38 4.70-6.10 [facility] HospitalQqrtsaeRUCYSYAKQS9951-44-65 18:49:00 Test Item Value Reference Range Interpretation Comments Hct (test code = Hct) 38.4 42.0-54.0 [facility] HospitalBvwvfysBHAMNQEOXO6613-53-29 18:49:00 Test Item Value Reference Range Interpretation Comments MCV (test code = MCV) 87.7 80.0-94.0 [facility] HospitalSlyixxhREXFICXTGK1620-08-11 18:49:00 Test Item Value Reference Range Interpretation Comments PTT (test code = PTT) 30.3 s 22.9-35.8 [facility]2014-10-28 18:49:00 Test Item Value Reference Range Interpretation Comments CK MB Index (test 0.8 See_Comment [Automate d message] The code = CK MB Index) system w [facility] generated this result transmit rolly reference range : <=2.5. The reference range was not used to interpr et this result as dale l/abnormal. [employer]2014-10-28 18:49:00 Test Item Value Reference Range Interpretation Comments Troponin-I (test code no gt See_Comment [Auto mated message] The = Troponin-I) system which g enerated this result transmit rolly reference range : <=0.40. The reference r marely was not used to interpr et this result as dale l/abnormal. [employer]2014-10-28 18:49:00 Test Item Value Reference Range Interpretation Comments CK MB (test code = CK MB) 1.3 0.5-3.6 [facility]2014-10-28 18:49:00 Test Item Value Reference Range Interpretation Comments Total CK (test code = Total CK) 155 12-191 [facility] [employer]2014-10-28 18:49:00 Test Item Value Reference Range Interpretation Comments eGFR (test code = eGFR) 66 [facility] [employer]2014-10-28 18:49:00 Test Item Value Reference Range Interpretation Comments Glucose Lvl (test code = Glucose Lvl) 93 70-99 [facility] [employer]2014-10-28 18:49:00 Test Item Value Reference Range Interpretation Comments BUN (test code = BUN) 14 7-22 [facility] [employer]2014-10-28 18:49:00 Test Item Value Reference Range Interpretation Comments Creatinine Lvl (test code = Creatinine 1.2 0.5-1.4 Lvl) [employer]2014-10-28 18:49:00 Test Item Value Reference Range Interpretation Comments Sodium Lvl (test code = Sodium Lvl) 141 135-145 [facility] [employer]2014-10-28 18:49:00 Test Item Value Reference Range Interpretation Comments Potassium Lvl (test code = Potassium 4.2 3.5-5.1 Lvl) [facility]2014-10-28 18:49:00 Test Item Value Reference Range Interpretation Comments CO2 (test code = CO2) 26 24-32 [facility]2014-10-28 18:49:00 Test Item Value Reference Range Interpretation Comments Chloride Lvl (test code = Chloride Lvl) 107 95-109 [facility]2014-10-28 18:49:00 Test Item Value Reference Range Interpretation Comments Calcium Lvl (test code = Calcium Lvl) 8.8 8.5-10.5 [facility]2014-10-28 18:49:00 Test Item Value Reference Range Interpretation Comments AGAP (test code = AGAP) 12.2 10.0-20.0 [facility] HospitalBewyvplGTJGBWHNLB1872-65-28 18:49:00 Test Item Value Reference Range Interpretation Comments Monocytes (test code = Monocytes) 7.5 2.0-12.0 [facility] HospitalMjholqtVCHVJEVMKD9523-56-70 18:49:00 Test Item Value Reference Range Interpretation Comments Eosinophils (test code = 9.1 See_Comment [A utomated message] The Eosinophils) system which ge nerated this result tra nsmitted reference range : <=4.0. The reference r marely was not used to int erpret this result as normal/abnormal . [facility] H[id number] 18:49:00 Test Item Value Reference Range Interpretation Comments Lymphocytes # (test code = Lymphocytes 1.9 1.0-5.5 #) [facility] Hospit[id number] 18:49:00 Test Item Value Reference Range Interpretation Comments Segs (test code = Segs) 43.6 45.0-75.0 [facility] H[id number] 18:49:00 Test Item Value Reference Range Interpretation Comments Lymphocytes (test code = Lymphocytes) 39.5 20.0-40.0 [facility] H[id number] 18:49:00 Test Item Value Reference Range Interpretation Comments Eosinophils # (test code 0.4 See_Comment [A utomated message] The = Eosinophils #) system whic h generated this result tra nsmitted reference range : <=0.5. The reference r marely was not used to int erpret this result as normal/abnormal . [facility] H[id number] 18:49:00 Test Item Value Reference Range Interpretation Comments Basophils # (test code 0.0 See_Comment [Aut omated message] The = Basophils #) system which generated this result tra nsmitted reference range : <=0.2. The reference r marely was not used to int erpret this result as normal/abnormal . [facility] H[id number] 18:49:00 Test Item Value Reference Range Interpretation Comments Monocytes # (test code 0.4 See_Comment [Aut omated message] The = Monocytes #) system which generated this result tra nsmitted reference range : <=0.8. The reference r marely was not used to int erpret this result as normal/abnormal . [facility] H[id number] 18:49:00 Test Item Value Reference Range Interpretation Comments Basophils (test code = 0.3 See_Comment [Aut omated message] The Basophils) system which ge nerated this result tra nsmitted reference range : <=1.0. The reference r marely was not used to int erpret this result as normal/abnormal . [facility] H[id number] 18:49:00 Test Item Value Reference Range Interpretation Comments Segs-Bands # (test code = Segs-Bands #) 2.1 1.5-8.1 [facility] H[id number] 18:49:00 Test Item Value Reference Range Interpretation Comments PT (test code = PT) 12.9 s 12.0-14.7 [facility] Hospit[id number] 18:49:00 Test Item Value Reference Range Interpretation Comments INR (test code = INR) 0.97 0.85-1.17 [facility] H[id number] 18:49:00 Test Item Value Reference Range Interpretation Comments MCHC (test code = MCHC) 34.6 32.0-36.0 [facility] Hospit[id number] 18:49:00 Test Item Value Reference Range Interpretation Comments MPV (test code = MPV) 9.0 7.4-10.4 [facility] H[id number] 18:49:00 Test Item Value Reference Range Interpretation Comments RDW (test code = RDW) 12.6 11.5-14.5 [facility] H[id number] 18:49:00 Test Item Value Reference Range Interpretation Comments Platelet (test code = Platelet) 155 133-450 [facility] Hospit[id number] 18:49:00 Test Item Value Reference Range Interpretation Comments MCH (test code = MCH) 30.3 pg 27.0-31.0 [facility] Hospit[id number] 18:49:00 Test Item Value Reference Range Interpretation Comments Hgb (test code = Hgb) 13.3 14.0-18.0 [facility] H[id number] 18:49:00 Test Item Value Reference Range Interpretation Comments WBC (test code = WBC) 4.8 3.7-10.4 [facility] Hospit[id number] 18:49:00 Test Item Value Reference Range Interpretation Comments RBC (test code = RBC) 4.38 4.70-6.10 [facility] H[id number] 18:49:00 Test Item Value Reference Range Interpretation Comments Hct (test code = Hct) 38.4 42.0-54.0 [facility] H[id number] 18:49:00 Test Item Value Reference Range Interpretation Comments MCV (test code = MCV) 87.7 80.0-94.0 [facility] H[id number] 18:49:00 Test Item Value Reference Range Interpretation Comments PTT (test code = PTT) 30.3 s 22.9-35.8 [facility]
[2022-10-24 04:48] LABS: Absolute Lymphocytes (CBC) 1.4 K/uL (0.7-4.9); Hematocrit 42.3 % (39.6-49.0); Lymphocytes % 24.4 % (15.3-44.8); MCV 89.5 fL (80-100); MPV 8.4 fL (7.6-11.3); RBC Red Blood Cell Count 4.73 M/uL (4.33-5.43)
[2022-10-24 05:11] LABS: Potassium 3.6 mmol/L (3.5-5.1); Troponin High Sensitivity 8.4 pg/mL (<58.9)
--- NOTE | 2022-10-24 06:37 | RAD REPORT ---
EXAM DESCRIPTION: RAD - Chest Single View - 10/24/2022 5:18 am CLINICAL HISTORY: CHEST PAIN COMPARISON: None FINDINGS: Lines: None. Lungs: No evidence of edema or pneumonia. Pleural: No significant pleural effusions or pneumothorax. Cardiac: The heart size is within normal limits. Mediastinum: Within normal limits. Bones: No acute fractures. Other: None IMPRESSION: No acute cardiopulmonary disease.
--- NOTE | 2022-10-24 07:14 | RAD REPORT ---
EXAM DESCRIPTION: CTChest Abdomen Pelvis W Cont - 10/24/2022 5:35 am CLINICAL HISTORY: Low abc and abdominal pain COMPARISON: 03/18/2017 CT TECHNIQUE: CT of the chest, abdomen, and pelvis was performed with IV contrast. All CT scans are performed using dose optimization technique as appropriate and may include automated exposure control or mA/KV adjustment according to patient size. FINDINGS: Thorax: Chest Wall: No abnormal mass Lungs: No acute abnormality. Pleura: No effusions or pneumothorax. Trice/Mediastinum: No lymphadenopathy. Aorta/Pulmonary Arteries: Unremarkable Heart: Normal size. Multi-vessel coronary artery disease. Abdomen/Pelvis: Liver: No acute abnormality or suspicious lesions. Biliary: Cholelithiasis. Mild pericholecystic edema. Stomach: No significant focal abnormality. Duodenum: No significant focal abnormality. Pancreas: No significant abnormality. Spleen: No significant abnormality. Adrenal: No suspicious lesions. Kidney/ureter: No hydronephrosis. No renal calculi. Retroperitoneum: No retroperitoneal adenopathy. Vascular: No aneurysm. Bowel: Diverticulosis. No evidence of acute diverticulitis.. Peritoneum: No ascites or free air. Fat containing inguinal hernias, right greater than left. Bladder: Circumferential bladder wall thickening which is nonspecific but could be related to some co mponent of chronic bladder outlet obstruction. Reproductive: No adnexal masses. Bones: No acute fracture. 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 Other: n/a IMPRESSION: 1. Cholelithiasis with mild pericholecystic stranding. Acute cholecystitis within the di fferential though the findings are nonspecific. Correlate with LFTs and clinically. 2. No other acute findings identified.
--- NOTE | 2022-10-24 08:27 | RAD REPORT ---
EXAM DESCRIPTION: US - Abdomen Exam Limited - 10/24/2022 8:09 am CLINICAL HISTORY: ABD PAIN COMPARISON: No comparisons FINDINGS: The gallbladder demonstrates gallstones. The gallbladder wall is thickened measuring 6 mil limeters. No pericholecystic fluid. The common bile duct is normal measuring 3 mm. The sonographic Mu rphy sign is negative. The patient has not received pain meds. The liver demonstrates no findings of intrahepatic biliary dilatation. IMPRESSION: Cholelithiasis and gallbladder wall thickening which are nonspecific findings in the abs ence of other ancillary abnormalities. Acute cholecystitis is not favored.
--- NOTE | 2022-10-24 09:15 | EDPHYS ---
Physician Documentation [facility] Name: Ramon Baxter Age: 67 yrs Sex: Male : 1955 Arrival Date: 10/24/2022 Time: 03:58 Bed 17 Private MD: ED Physician Jak Suarez HPI: 10/24 04:36 This 67 yrs old Male presents to ER via Ambulatory with complaints of Back Pain, kdr Abdominal Pain, Chest Pain > 30 y/o. 04:36 Patient states that he was awakened around 1 AM with low back right flank pain. He also kdr had some epigastric and/or chest pain at the same time. He denied any significant associated symptoms. Has not had this before. He has had a number of cardiac issues previously and was concerned that this may be an alternate presentation of some difficulty cardiac crow. He denies any other symptoms at this time. He has not had any other injury or fall. Onset: The symptoms/episode began/occurred suddenly, at 01:00. Severity of symptoms: At their worst the symptoms were mild moderate just prior to arrival, in the emergency department the symptoms are unchanged. The patient has not experienced similar symptoms in the past. The patient has not recently seen a physician. Historical: - Allergies: 04:11 No Known Allergies; ke1 - PMHx: 04:11 CAD; High Cholesterol; Hypertension; Myocardial infarction; ke1 - Immunization history:: Adult Immunizations Client reports receiving the 2nd dose of the Covid vaccine. - Social history:: Smoking status: Patient denies any tobacco usage or history of. ROS: 04:36 Constitutional: Negative for fever, chills, and weight loss, Eyes: Negative for injury, kdr pain, redness, and discharge, ENT: Negative for injury, pain, and discharge, Neck: Negative for injury, pain, and swelling, Respiratory: Negative for shortness of breath, cough, wheezing, and pleuritic chest pain, Abdomen/GI: Negative for abdominal pain, nausea, vomiting, diarrhea, and constipation, Back: Negative for injury and pain, : Negative for injury, bleeding, discharge, and swelling, MS/Extremity: Negative for injury and deformity, Skin: Negative for injury, rash, and discoloration, Neuro: Negative for headache, weakness, numbness, tingling, and seizure activity. Psych: Negative for depression, anxiety, suicide ideation, homicidal ideation, and hallucinations, Allergy/Immunology: Negative for hives, rash, and allergies, Endocrine: Negative for neck swelling, polydipsia, polyuria, polyphagia, and marked weight changes, Hematologic/Lymphatic: Negative for swollen nodes, abnormal bleeding, and unusual bruising. 04:36 Cardiovascular: Positive for chest pain, of the left low back. Exam: 04:36 Constitutional: This is a well developed, well nourished patient who is awake, alert, kdr and in no acute distress. Head/Face: Normocephalic, atraumatic. Eyes: Pupils equal round and reactive to light, extra-ocular motions intact. Lids and lashes normal. Conjunctiva and sclera are non-icteric and not injected. Cornea within normal limits. Periorbital areas with no swelling, redness, or edema. Neck: Trachea midline, no thyromegaly or masses palpated, and no cervical lymphadenopathy. Supple, full range of motion without nuchal rigidity, or vertebral point tenderness. No Meningismus. Chest/axilla: Normal chest wall appearance and motion. Nontender with no deformity. No lesions are appreciated. Cardiovascular: Regular rate and rhythm with a normal S1 and S2. No gallops, murmurs, or rubs. Normal PMI, no JVD. No pulse deficits. Respiratory: Lungs have equal breath sounds bilaterally, clear to auscultation and percussion. No rales, rhonchi or wheezes noted. No increased work of breathing, no retractions or nasal flaring. Abdomen/GI: Soft, non-tender, with normal bowel sounds. No distension or tympany. No guarding or rebound. No evidence of tenderness throughout. Back: No spinal tenderness. No costovertebral tenderness. Full range of motion. Skin: Warm, dry with normal turgor. Normal color with no rashes, no lesions, and no evidence of cellulitis. MS/ Extremity: Pulses equal, no cyanosis. Neurovascular intact. Full, normal range of motion. Neuro: Awake and alert, GCS 15, oriented to person, place, time, and situation. Cranial nerves II-XII grossly intact. Motor strength 5/5 in all extremities. Sensory grossly intact. Cerebellar exam normal. Normal gait. Psych: Awake, alert, with orientation to person, place and time. Behavior, mood, and affect are within normal limits. 04:36 Skin: Turgor: is good, Patient was noted to be slightly diaphoretic. 06:18 ECG was reviewed by the Attending Physician. kdr Vital Signs: 04:09 BP 122 / 70; Pulse 61; Resp 20; Temp 97.5; Pulse Ox 94% on R/A; Weight 92.99 kg; Height ke1 5 ft. 10 in. (177.80 cm); Pain 8/10; 05:05 BP 108 / 67; Pulse 60; Resp 18; Pulse Ox 97% ; Pain 3/10; ke1 06:03 BP 117 / 71; Pulse 74; Resp 16; Pulse Ox 96% ; pf1 07:15 BP 105 / 74; Pulse 57; Resp 17; Pulse Ox 98% on R/A; kr3 08:11 BP 113 / 72; Pulse 60; Resp 17; Pulse Ox 97% on R/A; kr3 08:52 BP 117 / 68; Pulse 62; Resp 17; Pulse Ox 99% on R/A; kr3 04:09 Body Mass Index 29.41 (92.99 kg, 177.80 cm) ke1 MDM: 07:27 Patient medically screened. ms3 09:17 Data reviewed: vital signs, nurses notes, lab test result(s), EKG, radiologic studies, ms3 and as a result, I will discharge patient. Counseling: I had a detailed discussion with the patient and/or guardian regarding: the historical points, exam findings, and any diagnostic results supporting the discharge/admit diagnosis, lab results, radiology results, the need for outpatient follow up, to return to the emergency department if symptoms worsen or persist or if there are any questions or concerns that arise at home. ED course: Discussed labs, imaging, EKG with patient and his . Patient to follow-up with his lacemaker in 2 days, patient to follow-up with Dr. Cyr in 2 to 3 days. Patient and his understand and agree with plan. All questions were answered. Return precautions discussed include worsening symptoms, or any other concerns. On reevaluation patient is asymptomatic, in no apparent distress, nontoxic-appearing, speaking full sentences.. 10/24 04:26 Order name: Basic Metabolic Panel; Complete Time: : kdr 10/24 04:26 Order name: CBC with Diff; Complete Time: :16 kdr 10/24 04:26 Order name: NT PRO-BNP; Complete Time: 05:16 kdr 10/24 04:26 Order name: Troponin HS; Complete Time: 05:16 kdr 10/24 04:26 Order name: XRAY Chest (1 view); Complete Time: 07:28 kdr 10/24 06:10 Order name: Troponin High Sensitivity: Draw 3 hours after initial draw ; Complete Time: kdr 08:28 10/24 04:26 Order name: EKG; Complete Time: 04:26 kdr 10/24 04:26 Order name: Cardiac monitoring; Complete Time: 04:42 kdr 10/24 04:26 Order name: EKG - Nurse/Tech; Complete Time: 04:42 kdr 10/24 04:26 Order name: IV Saline Lock; Complete Time: 04:42 kdr 10/24 04:26 Order name: Labs collected and sent; Complete Time: 04:42 kdr 10/24 04:26 Order name: O2 Per Protocol; Complete Time: 04:42 kdr 10/24 04:40 Order name: CT Chest, Abdomen, Pelvis - W/Contrast; Complete Time: 07:28 kdr 10/24 07:30 Order name: US Abdomen Limited; Complete Time: 08:28 ms3 10/24 04:26 Order name: O2 Sat Monitoring; Complete Time: 04:43 kdr EC:18 Rate is 60 beats/min. Rhythm is regular, Normal Sinus Rhythm with No ectopy. QRS [place] kdr is Normal. NH interval is normal. QRS interval is normal. QT interval is normal. Clinical impression: Normal ECG. Administered Medications: No medications were administered Disposition Summary: 10/24/22 09:15 Discharge Ordered Location: Home ms3 Condition: Stable ms3 Diagnosis - Chest pain, unspecified ms3 - Epigastric pain ms3 Followup: ms3 - With: Anand Cyr MD - When: 2 - 3 days - Reason: Recheck today's complaints Discharge Instructions: - Discharge Summary Sheet ms3 - Abdominal Pain, Adult ms3 - Nonspecific Chest Pain, Adult ms3 Forms: - Medication Reconciliation Form ms3 - Thank You Letter ms3 - Antibiotic Education ms3 - Prescription Opioid Use ms3 Signatures: Dispatcher [employer] Aureliano Jackson MD MD kdr Jak Suarez DO DO ms3 Ebrottie, Kouassi, RN RN ke1
--- NOTE | 2022-10-24 09:15 | ER ---
Nurse's Notes [facility] Name: Ramon Baxter Age: 67 yrs Sex: Male : 1955 Arrival Date: 10/24/2022 Time: 03:58 Bed 17 Private MD: Diagnosis: Chest pain, unspecified;Epigastric pain Presentation: 10/24 04:09 Chief complaint: Patient states: woke up around 0130 with back and epigastric pain. ke1 Coronavirus screen: Vaccine status: Patient reports receiving the 2nd dose of the covid vaccine. Ebola Screen: No symptoms or risks identified at this time. Initial Sepsis Screen: Does the patient meet any 2 criteria? No. Patient's initial sepsis screen is negative. Does the patient have a suspected source of infection? No. Patient's initial sepsis screen is negative. Risk Assessment: Do you want to hurt yourself or someone else? Patient reports no desire to harm self or others. Onset of symptoms was October 24, 2022 at 01:30. 04:09 Method Of Arrival: Ambulatory ke 04:09 Acuity: SHARON 3 ke1 Triage Assessment: 04:12 General: Appears uncomfortable, Behavior is calm, appropriate for age. Pain: Complains ke1 of pain in epigastric and back. Neuro: Level of Consciousness is awake, alert, Oriented to person, place, time, situation. Cardiovascular: Heart tones S1 S2 Rhythm is sinus rhythm. Respiratory: Airway is patent Trachea midline Respiratory effort is even, unlabored, Respiratory pattern is regular, symmetrical. Musculoskeletal: Capillary refill < 3 seconds, Range of motion: intact in all extremities. Historical: - Allergies: 04:11 No Known Allergies; ke1 - PMHx: 04:11 CAD; High Cholesterol; Hypertension; Myocardial infarction; ke1 - Immunization history:: Adult Immunizations Client reports receiving the 2nd dose of the Covid vaccine. - Social history:: Smoking status: Patient denies any tobacco usage or history of. Screenin:13 Abuse screen: Denies threats or abuse. Nutritional screening: No deficits noted. ke1 Tuberculosis screening: No symptoms or risk factors identified. Fall Risk None identified. Assessment: 05:05 Reassessment: Patient states feeling better. Patient states symptoms have improved. ke1 Neuro: Level of Consciousness is awake, alert. 06:13 Reassessment: No changes from previously documented assessment. ke1 08:11 Reassessment: No changes from previously documented assessment. Patient is alert, kr3 oriented x 3, equal unlabored respirations, skin warm/dry/pink. 08:52 Reassessment: No changes from previously documented assessment. Patient is alert, kr3 oriented x 3, equal unlabored respirations, skin warm/dry/pink. Vital Signs: 04:09 BP 122 / 70; Pulse 61; Resp 20; Temp 97.5; Pulse Ox 94% on R/A; Weight 92.99 kg; Height ke1 5 ft. 10 in. (177.80 cm); Pain 8/10; 05:05 BP 108 / 67; Pulse 60; Resp 18; Pulse Ox 97% ; Pain 3/10; ke1 06:03 BP 117 / 71; Pulse 74; Resp 16; Pulse Ox 96% ; pf1 07:15 BP 105 / 74; Pulse 57; Resp 17; Pulse Ox 98% on R/A; kr3 08:11 BP 113 / 72; Pulse 60; Resp 17; Pulse Ox 97% on R/A; kr3 08:52 BP 117 / 68; Pulse 62; Resp 17; Pulse Ox 99% on R/A; kr3 04:09 Body Mass Index 29.41 (92.99 kg, 177.80 cm) ke1 ED Course: 03:58 Patient arrived in ED. bp1 04:01 Kelley Pickens RN is Primary Nurse. ke1 04:11 Triage completed. ke1 04:13 Arm band placed on left wrist. ke1 04:14 Bed in low position. Call light in reach. ke1 04:17 Aureliano Garcia MD is Attending Physician. kdr 04:42 Inserted saline lock: 20 gauge in right forearm, using aseptic technique. ke1 04:43 Basic Metabolic Panel Sent. ke1 04:43 CBC with Diff Sent. ke1 04:43 NT PRO-BNP Sent. ke1 04:43 Troponin HS Sent. ke1 05:20 XRAY Chest (1 view) In Process Unspecified. EDMS 05:37 CT Chest, Abdomen, Pelvis - W/Contrast In Process Unspecified. EDMS 07:25 Primary Nurse role handed off by Kelley Pickens RN eb 07:27 Attending Physician role handed off by Aureliano Garcia MD ms3 07:27 Jak Suarez DO is Attending Physician. ms3 07:34 Leisa Lucero, RN is Primary Nurse. kr3 07:42 Troponin High Sensitivity: Draw 3 hours after initial draw Sent. kr3 08:11 US Abdomen Limited In Process Unspecified. EDMS 09:13 Anand Cyr MD is Referral Physician. ms3 09:45 IV discontinued, intact, bleeding controlled, No redness/swelling at site. Pressure kr3 dressing applied. 12:27 No provider procedures requiring assistance completed. kr3 Administered Medications: No medications were administered Medication: 12:29 VIS not applicable for this client. kr3 Outcome: 09:15 Discharge ordered by MD. ms3 09:45 Discharge instructions given to patient, family, Instructed on discharge instructions, kr3 follow up and referral plans. Demonstrated understanding of instructions, follow-up care. 09:47 Patient left the ED. kr3 12:29 Discharged to home ambulatory. kr3 12:29 Condition: stable Signatures: Dispatcher [employer] EDMO Aureliano Garcia MD MD [facility] Maricel Burroughs Jak Suarez DO DO ms3 Marissa Rick Kouassi RN RN ke1 Leisa Lucero, ÁLVARO RN kr3 Nina morales RN RN pf1 Corrections: (The following items were deleted from the chart) 07:45 07:43 BP 105 / 74; Pulse 57bpm; Resp 17bpm; Pulse Ox 98% RA; kr3 kr3 12:28 10:05 IV discontinued, intact, bleeding controlled, No redness/swelling at site. kr3 Pressure dressing applied, kr3
[2022-10-24 09:57] VITALS: TEMP 97.5
[2022-10-24 10:16] VITALS: BP 117/68; O2SAT 99
--- NOTE | 2022-10-25 14:59 | EKG ---
Test Date: 2022-10-24 Test Time: 04:31:45 Car Driver: FABRICIO MEASUREMENT RESULTS: Intervals: Rate: 60 [place]: 164 QRSD: 88 QT: 422 QTc: 422 Justin: P: 61 AZ: 164 QRS: 84 T: 81 INTERPRETIVE STATEMENTS: Normal sinus rhythm Normal ECG Compared to ECG 05/23/2005 17:17:00 ST (T wave) deviation no longer present Electronically Signed On 10-25-22 14:55:49 QUARRY BOSS by Marc Aguilar
== END 2022-10-24 09:47 | disposition home or self-care (01) ==
LOC: ER 03:52
DX: R07.9 Chest pain, unspecified (principal); R10.13 Epigastric pain; I10 Essential (primary) hypertension; I25.2 Old myocardial infarction
CPT/HCPCS: 93005; 85025; 80048; 36415; 84484 ×2; 83880; 71260; 74177; 71045; 76705; 99284; Q9967